=== PATIENT | female | born 1930 | race Caucasian/White ===

== ENCOUNTER 2017-04-02 11:24 | Inpatient (IN) | payer MEDICARE, OTHER ==
[2017-04-02] MEDS ORDERED: traMADol 50 MG Tab PO ONE (12:08)
--- NOTE | 2017-04-02 12:08 | EDM.PDOC ---
ED HPI GENERAL MEDICAL PROBLEM - General Chief Complaint: Back Pain or Injury Stated Complaint: [facility] Time Seen by Provider: 04/02/17 11:27 Source of Information: Reports: Patient, Family History Limitations: Reports: No Limitations - History of Present Illness INITIAL COMMENTS - FREE TEXT/NARRATIVE: The patient is an 86-year-old female brought in by EMS for severe right back and hip pain. She states she had a fall about 6 weeks ago. After that time, though she was not injured and didn't seek medical attention. About 3 weeks after the fall she started to get severe pain in the right low back and hip area while she was at work. Pain is located in the right posterior hip and low back area and sometimes radiates down her right foot. No numbness, paresthesia, or weakness in the feet. No urinary symptoms. She saw a clinic provider who did some sort of x-rays and diagnosed her with sciatica she was prescribed diclofenac tablets and topical diclofenac gel. However she's had no improvement with these medications. In fact today her pain was so bad that she was not able to get out of bed. Her daughter has been trying to help her out at home but even with her daughter's assistance she was not able to get up due to the severity of her pain. She is normally very active and healthy and previously walk without assistance. She has been trying to use a walker however she is feeling too much pain to use and use her walker today. No new falls or trauma. No fever or recent illness. No prior history of back or hip pain. Right Lower Back Pain Score (Numeric/FACES): 3 - Related Data Allergies Allergy/AdvReac Type Severity Reaction Status Date / Time eggs Allergy Cannot Uncoded 04/02/17 11:27 Remember Home Meds: Home Meds Carvedilol [Coreg] 6.25 mg PO BID #60 tablet 08/22/15 [Rx] Acetaminophen/Diphenhydramine [Tylenol Pm Ex-Strength Caplet] 1 tab PO BEDTIME 04/02/17 [History] Aspirin 81 mg PO DAILY 04/02/17 [History] Calcium Carbonate/Vitamin D3 [Calcium 500-Vit D3 200 Tablet] 1 tab PO DAILY [History] Calcium Carbonate/Vitamin D3 [Calcium Carb 500 MG] 1 tab CHEW ASDIRECTED [History] Cranberry 400 mg PO DAILY 04/02/17 [History] Denosumab [Prolia] 60 mg SUBCUT ASDIRECTED 04/02/17 [History] Ferrous Sulfate 325 mg PO DAILY 04/02/17 [History] Garlic 400 mg PO DAILY 04/02/17 [History] Gluc 2KCl/Chondr/Princess Hy/Hy Ac [Glucosamine & Chondroitin Cap] 1 cap PO DAILY [History] Multivitamin with Minerals [Multivitamins with Minerals] 1 tab PO DAILY [History] Potassium Chloride 10 meq PO DAILY 04/02/17 [History] Vit A/C/E AC/Znox/Cupric Oxide [Eye Vitamin-Minerals Tablet] 1 tab PO DAILY [History] Vitamin E 400 unit PO DAILY 04/02/17 [History] amLODIPine [Norvasc] 2.5 mg PO DAILY 04/02/17 [History] diphenhydrAMINE [Benadryl] 25 mg PO QAM 04/02/17 [History] Past Medical History HEENT History: Reports: Cataract Cardiovascular History: Reports: Hypertension Gastrointestinal History: Reports: Chronic Constipation, Chronic Diarrhea 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: Musculoskeletal History: Reports: Back Pain, Chronic - Past Surgical History HEENT Surgical History: Reports: Cataract Surgery, Tonsillectomy, Other (See Below) Social & Family History - Family History Family Medical History: Noncontributory - Tobacco Use Smoking Status *Q: Never Smoker - Recreational Drug Use Recreational Drug Use: No ED ROS GENERAL - Review of Systems Review Of Systems: See Below Constitutional: Denies: Fever HEENT: Reports: No Symptoms Respiratory: Denies: Cough Cardiovascular: Denies: Chest Pain Endocrine: Reports: No Symptoms GI/Abdominal: Denies: Abdominal Pain : Denies: Dysuria Musculoskeletal: Reports: Back Pain Skin: Reports: No Symptoms Neurological: Denies: Numbness, Paresthesia, Weakness Psychiatric: Reports: No Symptoms Hematologic/Lymphatic: Reports: No Symptoms Immunologic: Reports: No Symptoms ED EXAM,LOWER BACK PAIN/INJURY - Physical Exam Exam: See Below Exam Limited By: No Limitations General Appearance: Alert, WD/WN, No Apparent Distress Eye Exam: Bilateral Eye: Normal Inspection Ears: Normal External Exam Nose: Normal Inspection Throat/Mouth: Normal Inspection Head: Atraumatic, Normocephalic Neck: Normal Inspection, Supple, Non-Tender, Full Range of Motion Respiratory/Chest: No Respiratory Distress, Lungs Clear, Normal Breath Sounds Cardiovascular: Normal Peripheral Pulses, Regular Rate, Rhythm, No Murmur GI/Abdominal: Soft, Non-Tender, No Distention. No: Rebound Back Exam: Normal Inspection, Other (Some tenderness in the right SI joint area , more tenderness inferior to the SI joint across the right buttock. Straight leg raise produces pain in the right low back with raise of the left leg to about 25 in the right leg to about 20.). No: CVA Tenderness (L), CVA Tenderness (R), Paraspinal Tenderness, Vertebral Tenderness Extremities: Normal Inspection, Non-Tender, No Pedal Edema Neurological: Alert, Normal Mood/Affect, Normal Dorsiflexion, Normal Plantar Flexion, No Motor/Sensory Deficits, Oriented x 3 Psychiatric: Normal Affect, Normal Mood Skin Exam: Warm, Dry, Intact, Normal Color, No Rash Course - Vital Signs Last Recorded V/S: Last Vital Signs Temp 36.9 C 04/02/17 11:27 Pulse 77 04/02/17 11:27 Resp BP 168/93 H 04/02/17 13:06 Pulse Ox 97 04/02/17 11:27 - Orders/Labs/Meds Orders: Active Orders 24 hr Category Date Time Status Hip Min 2V or 3V w Pelvis Rt [CR] Stat Exams 04/02/17 12:08 Taken Medication Orders Amlodipine Besylate (Norvasc) 2.5 mg PO DAILY [facility] Aspirin (Aspirin) 81 mg PO DAILY [facility] Calcium Carbonate (Calcium Carbonate/Vitamin D 1500 Mg-200 Unit) 1 tab PO DAILY [facility] Carvedilol (Coreg) 6.25 mg PO BID [facility] Denosumab (Prolia) 60 mg SUBCUT ASDIRECTED [facility] Diphenhydramine HCl (Benadryl) 25 mg PO QAM [facility] Ferrous Sulfate (Ferrous Sulfate) 325 mg PO DAILY [facility] Multivitamins (Thera) 1 each PO DAILY [facility] Non-Formulary Medication (Cranberry [Cranberry]) 400 mg PO DAILY [facility] Meds: Medications Generic Name Dose Route Start Last Admin Trade Name Freq PRN Reason Stop Dose Admin Amlodipine Besylate 2.5 mg 04/03/17 09:00 Norvasc PO DAILY [facility] Aspirin 81 mg 04/03/17 09:00 Aspirin PO DAILY [facility] Calcium Carbonate 1 tab 04/03/17 09:00 Calcium Carbonate/Vitamin D 1500 Mg-200 Unit PO DAILY [facility] Carvedilol 6.25 mg 04/02/17 21:00 Coreg PO BID [facility] Denosumab 60 mg 04/02/17 14:30 Prolia SUBCUT ASDIRECTED [facility] Diphenhydramine HCl 25 mg 04/03/17 08:00 Benadryl PO QAM [facility] Ferrous Sulfate 325 mg 04/03/17 09:00 Ferrous Sulfate PO DAILY [facility] Multivitamins 1 each 04/03/17 09:00 Thera PO DAILY [facility] Non-Formulary Medication 400 mg 04/03/17 09:00 Cranberry [Cranberry] PO DAILY [facility] Discontinued Medications Generic Name Dose Route Start Last Admin Trade Name Freq PRN Reason Stop Dose Admin Amlodipine Besylate 5 mg 04/02/17 12:40 04/02/17 13:06 Norvasc PO 04/02/17 12:41 5 mg ONETIME ONE Administration Carvedilol 12.5 mg 04/02/17 12:40 04/02/17 13:04 Coreg PO 04/02/17 12:41 12.5 mg ONETIME ONE Administration Tramadol HCl 50 mg 04/02/17 12:08 04/02/17 12:13 Ultram PO 04/02/17 12:09 50 mg ONETIME ONE Administration - Re-Assessments/Exams Free Text/Narrative Re-Assessment/Exam: 04/02/17 12:48 X-rays of the hip and pelvis so some 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 Her history and exam are consistent with a sciatica exacerbation, I do think this is the etiology of her pain. Patient is still not able to get up out of bed after receiving tramadol. She currently lives at home alone. She has a daughter to help her but her daughter is not able to get her out of bed either. Given patient's immobility due to pain, I will request admission for pain control and physical therapy. Discussed with Dr. Blancas who agrees to admit patient. Departure - Departure Time of Disposition: 13:55 Disposition: Admitted As Inpatient 65 Clinical Impression: Sciatica Qualifiers: Laterality: right Qualified Code(s): M54.31 - Sciatica, right side Back pain Qualifiers: Back pain location: low back pain Chronicity: acute Back pain laterality: right Sciatica presence: with sciatica Sciatica laterality: sciatica of right side Qualified Code(s): M54.41 - Lumbago with sciatica, right side - Discharge Information - My Orders Last 24 Hours: My Active Orders 04/02/17 12:08 Hip Min 2V or 3V w Pelvis Rt [CR] Stat - Assessment/Plan Last 24 Hours: My Active Orders 04/02/17 12:08 Hip Min 2V or 3V w Pelvis Rt [CR] Stat
[2017-04-02] MEDS ORDERED: Carvedilol 12.5 MG Tab PO ONE (12:40)
[2017-04-02] MEDS ORDERED: amLODIPine 5 MG Tab PO ONE (12:40)
[2017-04-02] MEDS ORDERED: Denosumab 60 MG/1 ML Syringe SUBCUT SCH (14:30)
[2017-04-02] MEDS ORDERED: HYDROmorphone 0.5 MG/0.5 ML Syringe IVPUSH PRN (14:48)
--- NOTE | 2017-04-02 14:49 | PCM.HP ---
H&P History of Present Illness - General Date of Service: 04/02/17 Admit Problem/Dx: Admission Diagnosis/Problem Admission Diagnosis/Problem Back pain Source of Information: Patient, Family, Provider History Limitations: Reports: No Limitations - History of Present Illness Initial Comments - Free Text/Narative: 86 year old female remote history of a fall, 6 wks [employer]. Presents with back pain and limited mobility. The pain radiates down her right leg to her foot. There is no numbness, parathesias, or generalized weakness. She denies syncopal , presyncopal epdisode, CP or SOB. The patient was seen as an OP recently and was prescribed an NSAID, this has provided minimal relief. She presents with intractible back pain, and limited mobility. Onset of Symptoms: Reports: Gradual Symptom Onset Date: 03/16/17 Duration of Symptoms: Reports: Week(s):, Getting Worse Location: Reports: Back Quality: Reports: Sharp, Stabbing Severity: Moderate Improves with: Reports: Medication Worsens with: Reports: None Associated Symptoms: Reports: No Other Symptoms Right Lower Back Pain Score (Numeric/FACES): 3 - Related Data Allergies/Adverse Reactions: Allergies Allergy/AdvReac Type Severity Reaction Status Date / Time eggs Allergy Cannot Uncoded 04/02/17 11:27 Remember Home Medications: Home Meds Carvedilol [Coreg] 6.25 mg PO BID #60 tablet 08/22/15 [Rx] Acetaminophen/Diphenhydramine [Tylenol Pm Ex-Strength Caplet] 1 tab PO BEDTIME 04/02/17 [History] Aspirin 81 mg PO DAILY 04/02/17 [History] Calcium Carbonate/Vitamin D3 [Calcium 500-Vit D3 200 Tablet] 1 tab PO DAILY [History] Calcium Carbonate/Vitamin D3 [Calcium Carb 500 MG] 1 tab CHEW ASDIRECTED [History] Cranberry 400 mg PO DAILY 04/02/17 [History] Denosumab [Prolia] 60 mg SUBCUT ASDIRECTED 04/02/17 [History] Diclofenac Sodium [Voltaren 1% Gel] 100 gm TOP BID 04/02/17 [History] Diclofenac Sodium [Voltaren] 75 mg PO BIDMEALS 04/02/17 [History] Ferrous Sulfate 325 mg PO DAILY 04/02/17 [History] Garlic 400 mg PO DAILY 04/02/17 [History] Gluc 2KCl/Chondr/Princess Hy/Hy Ac [Glucosamine & Chondroitin Cap] 1 cap PO DAILY [History] Multivitamin with Minerals [Multivitamins with Minerals] 1 tab PO DAILY [History] Potassium Chloride 10 meq PO DAILY 04/02/17 [History] Vit A/C/E AC/Znox/Cupric Oxide [Eye Vitamin-Minerals Tablet] 1 tab PO DAILY [History] Vitamin E 400 unit PO DAILY 04/02/17 [History] amLODIPine [Norvasc] 2.5 mg PO DAILY 04/02/17 [History] diphenhydrAMINE [Benadryl] 25 mg PO QAM 04/02/17 [History] Past Medical History HEENT History: Reports: Cataract Cardiovascular History: Reports: Hypertension Gastrointestinal History: Reports: Chronic Constipation, Chronic Diarrhea 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: Musculoskeletal History: Reports: Back Pain, Chronic - Past Surgical History HEENT Surgical History: Reports: Cataract Surgery, Tonsillectomy, Other (See Below) Social & Family History - Family History Family Medical History: Noncontributory - Tobacco Use Smoking Status *Q: Never Smoker - Recreational Drug Use Recreational Drug Use: No H&P Review of Systems - Review of Systems: Review Of Systems: See Below General: Reports: Weakness HEENT: Reports: No Symptoms Pulmonary: Reports: No Symptoms Cardiovascular: Reports: No Symptoms Gastrointestinal: Reports: No Symptoms Genitourinary: Reports: No Symptoms Musculoskeletal: Reports: Back Pain Skin: Reports: No Symptoms Psychiatric: Reports: No Symptoms Neurological: Reports: No Symptoms Hematologic/Lymphatic: Reports: No Symptoms Immunologic: Reports: No Symptoms Exam - Exam Exam: See Below - Vital Signs Vital Signs: Last Vital Signs Temp 36.9 C 04/02/17 11:27 Pulse 77 04/02/17 11:27 Resp BP 168/93 H 04/02/17 13:06 Pulse Ox 97 04/02/17 11:27 Weight: 46.357 kg - Exam Quality Assessment: DVT Prophylaxis General: Alert, Oriented, Cooperative HEENT: EOMI, Nares Patent, Normal Nasal Septum, Posterior Pharynx Clear, Pupils Equal, Pupils Reactive, PERRLA Neck: Supple, Trachea Midline Lungs: Normal Respiratory Effort Cardiovascular: Regular Rate GI/Abdominal Exam: Normal Bowel Sounds, Soft, Non-Tender, No Organomegaly, No Distention (Female) Exam: Deferred Rectal (Female) Exam: Deferred Back Exam: Normal Inspection Extremities: Normal Inspection, Non-Tender, No Pedal Edema Skin: Warm Neurological: Cranial Nerves Intact Neuro Extensive - Mental Status: Alert, Oriented x3, Normal Mood/Affect, Normal Cognition, Memory Intact Neuro Extensive - Motor, Sensory, Reflexes: CN II-XII Intact Psychiatric: Alert, Normal Affect, Normal Mood - Patient Data Result Diagrams: 04/02/17 16:00 04/02/17 16:00 *Q Meaningful Use (ADM) - VTE *Q VTE Criteria *Q: - Stroke *Q Stroke Criteria *Q: - AMI *Q AMI Criteria *Q: - Problem List (1) Back pain SNOMED Code(s): 734089924 ICD Code: M54.9 - DORSALGIA, UNSPECIFIED Status: Acute Current Visit: Yes Qualifiers: Back pain location: low back pain Chronicity: acute Back pain laterality : right Sciatica presence: with sciatica Sciatica laterality: sciatica of right side Qualified Code(s): M54.41 - Lumbago with sciatica, right side (2) Sciatica SNOMED Code(s): 96704582 ICD Code: M54.30 - SCIATICA, UNSPECIFIED SIDE Status: Acute Current Visit : Yes Qualifiers: Laterality: right Qualified Code(s): M54.31 - Sciatica, right side (3) Hypertension SNOMED Code(s): 83770146 ICD Code: I10 - ESSENTIAL (PRIMARY) HYPERTENSION Status: Chronic Priority : Medium Current Visit: No Onset Date: 08/22/15 Problem Details: - Controlled - Dosing was too much - Will adjust meds Qualifiers: Hypertension type: essential hypertension Problem List Initiated/Reviewed/Updated: Yes Orders Last 24hrs: Active Orders 24 hr Category Date Time Status Patient Status [ADT] Routine ADT 04/02/17 14:40 Active Consult to Occupational Therapy [OT Evaluation and Cons 04/04/17 10:00 Ordered Treatment] [CONS] Routine Consult to Physical Therapy [PT Evaluation and Cons 04/04/17 09:00 Ordered Treatment] [CONS] Routine 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 [CONS] Routine Cons 04/04/17 09:00 Ordered Heart Healthy Diet [DIET] Diet 04/02/17 Lunch Ordered BASIC METABOLIC PANEL,BMP [CHEM] DAILY Lab 04/03/17 05:00 Ordered BASIC METABOLIC PANEL,BMP [CHEM] DAILY Lab 04/04/17 05:00 Ordered BASIC METABOLIC PANEL,BMP [CHEM] DAILY Lab 04/05/17 05:00 Ordered BASIC METABOLIC PANEL,BMP [CHEM] DAILY Lab 04/06/17 05:00 Ordered CBC WITH AUTO DIFF [HEME] DAILY Lab 04/03/17 05:00 Ordered CBC WITH AUTO DIFF [HEME] DAILY Lab 04/04/17 05:00 Ordered CBC WITH AUTO DIFF [HEME] DAILY Lab 04/05/17 05:00 Ordered CBC WITH AUTO DIFF [HEME] DAILY Lab 04/06/17 05:00 Ordered CBC WITH AUTO DIFF [HEME] Routine Lab 04/02/17 16:00 Ordered CMP [COMPREHENSIVE METABOLIC PN,CMP] [CHEM] Routine Lab 04/02/17 16:00 Ordered CRP [C-REACTIVE PROTEIN] [CHEM] DAILY Lab 04/03/17 05:00 Ordered CRP [C-REACTIVE PROTEIN] [CHEM] DAILY Lab 04/04/17 05:00 Ordered CRP [C-REACTIVE PROTEIN] [CHEM] DAILY Lab 04/05/17 05:00 Ordered CRP [C-REACTIVE PROTEIN] [CHEM] DAILY Lab 04/06/17 05:00 Ordered INFLUENZA A+B AG SCREEN [RM] Routine Lab 04/02/17 14:31 Uncollected LIPID PANEL [CHEM] Routine Lab 04/03/17 05:00 Ordered MAGNESIUM [CHEM] DAILY Lab 04/03/17 05:00 Ordered MAGNESIUM [CHEM] DAILY Lab 04/04/17 05:00 Ordered MAGNESIUM [CHEM] DAILY Lab 04/05/17 05:00 Ordered MAGNESIUM [CHEM] DAILY Lab 04/06/17 05:00 Ordered SEDIMENTATION RATE AUTO [HEME] Routine Lab 04/02/17 16:00 Ordered Aspirin Med 04/03/17 09:00 Ordered 81 mg PO DAILY Calcium Carbonate/Vitamin D3 Med 04/03/17 09:00 Ordered 1 tab PO DAILY Carvedilol [Coreg] Med 04/02/17 21:00 Ordered 6.25 mg PO BID Cranberry [Cranberry] Med 04/03/17 09:00 Ordered 400 mg PO DAILY Denosumab [Prolia] Med 04/02/17 14:30 Ordered 60 mg SUBCUT ASDIRECTED Ferrous Sulfate Med 04/03/17 09:00 Ordered 325 mg PO DAILY HYDROmorphone [Dilaudid] Med 04/02/17 14:48 Ordered 0.5 mg IVPUSH Q4H PRN Multivitamin with Minerals [Multivitamins with Minerals Med 04/03/17 09:00 Ordered ] 1 tab PO DAILY amLODIPine [Norvasc] Med 04/03/17 09:00 Ordered 2.5 mg PO DAILY diphenhydrAMINE Med 04/03/17 08:00 Ordered 25 mg PO QAM fentaNYL [Duragesic] Med 04/02/17 15:00 Ordered 12 mcg TRDERM Q72H traMADol [Ultram] Med 04/02/17 14:48 Ordered 50 mg PO Q8H PRN Code Status [Resuscitation Status] Routine Resus Stat 04/02/17 14:36 Ordered Medication Orders Amlodipine Besylate (Norvasc) 2.5 mg PO DAILY [facility] Aspirin (Aspirin) 81 mg PO DAILY [facility] Calcium Carbonate (Calcium Carbonate/Vitamin D 1500 Mg-200 Unit) 1 tab PO DAILY [facility] Carvedilol (Coreg) 6.25 mg PO BID [facility] Denosumab (Prolia) 60 mg SUBCUT ASDIRECTED [facility] Diphenhydramine HCl (Benadryl) 25 mg PO QAM [facility] Fentanyl (Duragesic) 12 mcg TRDERM Q72H [facility] Ferrous Sulfate (Ferrous Sulfate) 325 mg PO DAILY [facility] Hydromorphone HCl (Dilaudid) 0.5 mg IVPUSH Q4H PRN PRN Reason: Pain Multivitamins (Thera) 1 each PO DAILY [facility] Non-Formulary Medication (Cranberry [Cranberry]) 400 mg PO DAILY [facility] Tramadol HCl (Ultram) 50 mg PO Q8H PRN PRN Reason: Pain (moderate 4-6) Assessment/Plan Comment:: Impression: Back pain, query sciatic; no recent trauma Chronic HTN Plan: Pain mgt Home meds Daily Labs Correct electrolytes PT/OT/SW consults
[2017-04-02] MEDS: fentaNYL 12 MCG/HR Transdermal Patch TRDERM SCH (15:44)
[2017-04-02] MEDS: traMADol 50 MG Tab PO PRN (18:48)
[2017-04-02] MEDS ORDERED: Potassium Chloride 10% 20 MEQ/15 ML Soln 15 ML UD Cup PO ONE (19:00)
[2017-04-02] MEDS: hydrALAZINE 20 MG/ML SDV IVPUSH PRN (19:25)
[2017-04-02] MEDS: Carvedilol 6.25 MG Tab PO SCH (22:08)
[2017-04-03] MEDS: traMADol 50 MG Tab PO PRN ×3 (04:47→21:30)
[2017-04-03] MEDS: diphenhydrAMINE 25 MG Cap PO SCH (08:17)
[2017-04-03] MEDS: Aspirin 81 MG Tab.Chew PO SCH (08:18)
[2017-04-03] MEDS: amLODIPine 2.5 MG Tab PO SCH (08:18)
[2017-04-03] MEDS: Multivitamins,Therapeutic Tab PO SCH (08:18)
[2017-04-03] MEDS: Ferrous Sulfate 325 MG Tab PO SCH (08:18)
[2017-04-03] MEDS: Calcium Carbonate/Vitamin D3 1500 MG-200 Units Tab PO SCH (08:18)
[2017-04-03] MEDS: Carvedilol 6.25 MG Tab PO SCH ×2 (08:18→21:30)
[2017-04-03] MEDS: Enoxaparin 40 MG/0.4 ML Syringe SUBCUT SCH (08:19)
[2017-04-03] MEDS ORDERED: Non-Formulary Medication 1 Each (Cranberry [Cranberry] 400 MG) PO SCH (09:00)
--- NOTE | 2017-04-03 14:23 | PCM.PN ---
- General Info Date of Service: 04/03/17 Subjective Update: Feels better with fentanyl patch and ultram, has not required dilaudid IV since yesterday in the evening. Functional Status: Reports: Tolerating Diet, Ambulating, Urinating - Review of Systems General: Reports: No Symptoms HEENT: Reports: No Symptoms Pulmonary: Reports: No Symptoms Cardiovascular: Reports: No Symptoms Gastrointestinal: Reports: No Symptoms Genitourinary: Reports: No Symptoms Musculoskeletal: Reports: No Symptoms Skin: Reports: No Symptoms Neurological: Reports: No Symptoms Psychiatric: Reports: No Symptoms - Patient Data Vitals - Most Recent: Last Vital Signs Temp 37.4 C 04/03/17 12:09 Pulse 72 04/03/17 12:09 Resp 18 04/03/17 12:09 BP 140/84 04/03/17 12:09 Pulse Ox 96 04/03/17 12:09 Weight - Most Recent: 46.357 kg I&O - Last 24 Hours: Intake & Output 04/02/17 04/03/17 04/03/17 22:59 06:59 14:59 Intake Total 1400 1000 180 Output Total 900 Balance 1400 100 180 Lab Results Last 24 Hours: Laboratory Results - last 24 hr 04/02/17 04/02/17 04/02/17 Range/Units 16:00 16:00 16:00 WBC 9.07 (3.98-10.04) K/mm3 RBC 3.97 L (3.98-5.22) M/mm3 Hgb 13.2 (11.2-15.7) gm/L Hct 39.9 (34.1-44.9) % MCV 100.5 H (79.4-94.8) fl MCH 33.2 H (25.6-32.2) pg MCHC 33.1 (32.2-35.5) g/dl RDW Std Deviation 46.3 (36.4-46.3) fL Plt Count 261 (182-369) K/mm3 MPV 9.0 L (9.4-12.3) fl Neut % (Auto) 63.1 (34.0-71.1) % Lymph % (Auto) 21.7 (19.3-51.7) % [place] % (Auto) 11.9 (4.7-12.5) % Eos % (Auto) 2.8 (0.7-5.8) Baso % (Auto) 0.3 (0.1-1.2) % Neut # (Auto) 5.72 (1.56-6.13) K/mm3 Lymph # (Auto) 1.97 (1.18-3.74) K/mm3 [place] # (Auto) 1.08 H (0.24-0.36) K/mm3 Eos # (Auto) 0.25 (0.04-0.36) K/mm3 Baso # (Auto) 0.03 (0.01-0.08) K/mm3 ESR 19 (0-20) mm/hr Sodium 143 (136-145) mEq/L Potassium 3.2 L (3.5-5.1) mEq/L Chloride 107 (98-107) mEq/L Carbon Dioxide 30 (21-32) mEq/L Anion Gap 9.2 (5-15) BUN 18 (7-18) mg/dL Creatinine 0.8 (0.55-1.02) mg/dL Est Cr Clr Drug Dosing 35.59 mL/min Estimated GFR (MDRD) > 60 (>60) mL/min BUN/Creatinine Ratio 22.5 H (14-18) Glucose 138 H (83-115) mg/dL Calcium 8.5 (8.5-10.1) mg/dL Magnesium (1.8-2.4) mg/dl Total Bilirubin 0.6 (0.2-1.0) mg/dL AST 24 (15-37) U/L ALT 22 (14-59) U/L Alkaline Phosphatase 127 H (46-116) U/L C-Reactive Protein (<1.0) mg/dL Total Protein 6.5 (6.4-8.2) g/dl Albumin 3.1 L (3.4-5.0) g/dl Globulin 3.4 gm/dL Albumin/Globulin Ratio 0.9 L (1-2) Triglycerides (<150) mg/dL Cholesterol (<200) mg/dL LDL Cholesterol Direct (<100) mg/dL HDL Cholesterol (40-59) mg/dL 04/03/17 04/03/17 Range/Units 05:45 05:45 WBC 8.41 (3.98-10.04) K/mm3 RBC 3.99 (3.98-5.22) M/mm3 Hgb 13.3 (11.2-15.7) gm/L Hct 40.3 (34.1-44.9) % MCV 101.0 H (79.4-94.8) fl MCH 33.3 H (25.6-32.2) pg MCHC 33.0 (32.2-35.5) g/dl RDW Std Deviation 47.7 H (36.4-46.3) fL Plt Count 262 (182-369) K/mm3 MPV 9.1 L (9.4-12.3) fl Neut % (Auto) 66.9 (34.0-71.1) % Lymph % (Auto) 19.1 L (19.3-51.7) % [place] % (Auto) 11.5 (4.7-12.5) % Eos % (Auto) 2.1 (0.7-5.8) Baso % (Auto) 0.2 (0.1-1.2) % Neut # (Auto) 5.61 (1.56-6.13) K/mm3 Lymph # (Auto) 1.61 (1.18-3.74) K/mm3 [place] # (Auto) 0.97 H (0.24-0.36) K/mm3 Eos # (Auto) 0.18 (0.04-0.36) K/mm3 Baso # (Auto) 0.02 (0.01-0.08) K/mm3 ESR (0-20) mm/hr Sodium 144 (136-145) mEq/L Potassium 3.6 (3.5-5.1) mEq/L Chloride 109 H (98-107) mEq/L Carbon Dioxide 26 (21-32) mEq/L Anion Gap 12.6 (5-15) BUN 14 (7-18) mg/dL Creatinine 0.6 (0.55-1.02) mg/dL Est Cr Clr Drug Dosing 47.45 mL/min Estimated GFR (MDRD) > 60 (>60) mL/min BUN/Creatinine Ratio 23.3 H (14-18) Glucose 129 H (83-115) mg/dL Calcium 8.5 (8.5-10.1) mg/dL Magnesium 2.3 (1.8-2.4) mg/dl Total Bilirubin (0.2-1.0) mg/dL AST (15-37) U/L ALT (14-59) U/L Alkaline Phosphatase (46-116) U/L C-Reactive Protein < 0.2 (<1.0) mg/dL Total Protein (6.4-8.2) g/dl Albumin (3.4-5.0) g/dl Globulin gm/dL Albumin/Globulin Ratio (1-2) Triglycerides 81 (<150) mg/dL Cholesterol 185 (<200) mg/dL LDL Cholesterol Direct 113 H* (<100) mg/dL HDL Cholesterol 54.0 (40-59) mg/dL [place] Results Last 24 Hours: Microbiology 04/02/17 15:28 Influenza Type A Antigen Screen - Final Nasal, Right Positive Influenza A Ag Influenza Type B Antigen Screen - Final NEGATIVE INFLUENZA B VIRUS AG Med Orders - Current: Current Medications Amlodipine Besylate (Norvasc) 2.5 mg PO DAILY [facility] Last Admin: 04/03/17 08:18 Dose: 2.5 mg Aspirin (Aspirin) 81 mg PO DAILY [facility] Last Admin: 04/03/17 08:18 Dose: 81 mg Calcium Carbonate (Calcium Carbonate/Vitamin D 1500 Mg-200 Unit) 1 tab PO DAILY [facility] Last Admin: 04/03/17 08:18 Dose: 1 tab Carvedilol (Coreg) 6.25 mg PO BID [facility] Last Admin: 04/03/17 08:18 Dose: 6.25 mg Diphenhydramine HCl (Benadryl) 25 mg PO QAM [facility] Last Admin: 04/03/17 08:17 Dose: Not Given Enoxaparin Sodium (Lovenox) 40 mg SUBCUT DAILY [facility] Last Admin: 04/03/17 08:19 Dose: 40 mg Fentanyl (Duragesic) 12 mcg TRDERM Q72H [facility] Last Admin: 04/02/17 15:44 Dose: 12 mcg Ferrous Sulfate (Ferrous Sulfate) 325 mg PO DAILY [facility] Last Admin: 04/03/17 08:18 Dose: 325 mg Hydralazine HCl (Apresoline) 20 mg IVPUSH Q8H PRN PRN Reason: Hypertension Last Admin: 04/02/17 19:25 Dose: 20 mg Hydromorphone HCl (Dilaudid) 0.5 mg IVPUSH Q4H PRN PRN Reason: Pain Miscellaneous Information (Remove Patch) 1 ea TRDERM Q72H [facility] Multivitamins (Thera) 1 each PO DAILY [facility] Last Admin: 04/03/17 08:18 Dose: 1 each Tramadol HCl (Ultram) 50 mg PO Q8H PRN PRN Reason: Pain (moderate 4-6) Last Admin: 04/03/17 12:53 Dose: 50 mg Discontinued Medications Amlodipine Besylate (Norvasc) 5 mg PO ONETIME ONE Stop: 04/02/17 12:41 Last Admin: 04/02/17 13:06 Dose: 5 mg Carvedilol (Coreg) 12.5 mg PO ONETIME ONE Stop: 04/02/17 12:41 Last Admin: 04/02/17 13:04 Dose: 12.5 mg Denosumab (Prolia) 60 mg SUBCUT ASDIRECTED [facility] Non-Formulary Medication (Cranberry [Cranberry]) 400 mg PO DAILY [facility] Potassium Chloride (Potassium Chloride Solution) 40 meq PO ONETIME ONE Stop: 04/02/17 19:01 Last Admin: 04/02/17 18:32 Dose: 40 meq Tramadol HCl (Ultram) 50 mg PO ONETIME ONE Stop: 04/02/17 12:09 Last Admin: 04/02/17 12:13 Dose: 50 mg - Exam Quality Assessment: DVT Prophylaxis General: Alert, Oriented, Cooperative, No Acute Distress HEENT: Pupils Equal, Pupils Reactive, EOMI Neck: Supple, Trachea Midline, No JVD Lungs: Normal Respiratory Effort Cardiovascular: Regular Rate, Regular Rhythm GI/Abdominal Exam: Normal Bowel Sounds, Soft, Non-Tender, No Organomegaly, No Distention (Female) Exam: Deferred Back Exam: Normal Inspection Extremities: Normal Inspection Skin: Warm Neurological: No New Focal Deficit Psy/Mental Status: Alert, Normal Affect, Normal Mood - Problem List & Annotations (1) Back pain SNOMED Code(s): 641958619 Code(s): M54.9 - DORSALGIA, UNSPECIFIED Status: Acute Current Visit: Yes Qualifiers: Back pain location: low back pain Chronicity: acute Back pain laterality : right Sciatica presence: with sciatica Sciatica laterality: sciatica of right side Qualified Code(s): M54.41 - Lumbago with sciatica, right side (2) Sciatica SNOMED Code(s): 58245592 Code(s): M54.30 - SCIATICA, UNSPECIFIED SIDE Status: Acute Current Visit : Yes Qualifiers: Laterality: right Qualified Code(s): M54.31 - Sciatica, right side (3) Hypertension SNOMED Code(s): 93989227 Code(s): I10 - ESSENTIAL (PRIMARY) HYPERTENSION Status: Chronic Priority : Medium Current Visit: No Onset Date: 08/22/15 Qualifiers: Hypertension type: essential hypertension Annotation/Comment:: - Controlled - Dosing was too much - Will adjust meds - Problem List Review Problem List Initiated/Reviewed/Updated: Yes - My Orders Last 24 Hours: My Active Orders 04/02/17 14:48 HYDROmorphone [Dilaudid] 0.5 mg IVPUSH Q4H PRN traMADol [Ultram] 50 mg PO Q8H PRN 04/02/17 15:00 fentaNYL [Duragesic] 12 mcg TRDERM Q72H 04/02/17 15:56 Up With Assistance [RC] ASDIRECTED 04/02/17 18:56 hydrALAZINE [Apresoline] 20 mg IVPUSH Q8H PRN 04/03/17 09:00 Enoxaparin [Lovenox] 40 mg SUBCUT DAILY 04/04/17 09:00 Consult to Physical Therapy [PT Evaluation and Treatment] [CONS] Routine 04/04/17 10:00 Consult to Occupational Therapy [OT Evaluation and Treatment] [CONS] Routine - Plan Plan:: Impression: Back pain, query sciatic; no recent trauma Responding to transdermal fentanyl and ultram Chronic HTN Plan: Pain mgt Home meds Daily Labs Correct electrolytes PT/OT/SW consults DC 24-48 hours
[2017-04-03] MEDS: hydrALAZINE 20 MG/ML SDV IVPUSH PRN (23:24)
[2017-04-04] MEDS: traMADol 50 MG Tab PO PRN ×2 (06:04→16:21)
[2017-04-04] MEDS: diphenhydrAMINE 25 MG Cap PO SCH (07:28)
[2017-04-04] MEDS: Carvedilol 6.25 MG Tab PO SCH ×2 (08:10→21:02)
[2017-04-04] MEDS: amLODIPine 2.5 MG Tab PO SCH (08:10)
[2017-04-04] MEDS: Ferrous Sulfate 325 MG Tab PO SCH (08:11)
[2017-04-04] MEDS: Aspirin 81 MG Tab.Chew PO SCH (08:11)
[2017-04-04] MEDS: Multivitamins,Therapeutic Tab PO SCH (08:11)
[2017-04-04] MEDS: Calcium Carbonate/Vitamin D3 1500 MG-200 Units Tab PO SCH (08:11)
[2017-04-04] MEDS: Enoxaparin 40 MG/0.4 ML Syringe SUBCUT SCH (08:12)
--- NOTE | 2017-04-04 08:34 | CR ---
Pelvis and right hip: AP view of the pelvis was obtained as well as AP and frog-leg lateral views of the right hip. Comparison: No prior pelvis or hip study is available. Calcifications are seen within the pelvis believed to be incidental. Minimal degenerative change partially visualized within the lower lumbar spine. Moderate joint space narrowing noted within the left hip. Joint space within the right hip is preserved. Mild osteophytes are noted off of both hips. Bony structures are osteopenic. Impression: 1. Osteopenia, degenerative change and other incidental findings as described above. Diagnostic code #2
[2017-04-04] MEDS ORDERED: [UNRECOGNIZED DRUG - OTHER] CHEW SCH (10:30)
[2017-04-04] MEDS ORDERED: CALCIUM CARBONATE CHEW SCH (10:30)
[2017-04-04] MEDS ORDERED: VITAMIN D3 CHEW SCH (10:30)
[2017-04-04] MEDS ORDERED: Potassium Chloride 20 MEQ Tab.ER PO ONE (10:30)
[2017-04-04] MEDS: Potassium Chloride 10 MEQ Tab.ER PO SCH (10:31)
[2017-04-04] MEDS: Famotidine 20 MG Tab PO SCH ×2 (10:31→21:02)
[2017-04-04] MEDS: Lidocaine 5% 700 MG Patch TOP SCH (10:31)
[2017-04-04] MEDS: Celecoxib 100 MG Cap PO SCH ×2 (10:31→21:02)
--- NOTE | 2017-04-04 10:31 | PCM.PN ---
- General Info Date of Service: 04/04/17 Admission Dx/Problem (Free Text): Admission Diagnosis/Problem Admission Diagnosis/Problem Back pain Karen is a pleasant 86yo female here with acute on chronic back pain. She has had worsening pain over the last few weeks, did have a fall at home. Xray of right hip and pelvis were negative. She has been started on fentanyl patch with some improvements. She is working with PT/OT. Appetite is minimal but she is eating. Functional Status: Reports: Pain Controlled (improved), Tolerating Diet, Ambulating (with assist), Urinating - Review of Systems General: Reports: Weakness HEENT: Reports: No Symptoms Pulmonary: Reports: No Symptoms. Denies: Shortness of Breath, Cough Cardiovascular: Reports: No Symptoms. Denies: Chest Pain Gastrointestinal: Reports: No Symptoms. Denies: Abdominal Pain, Nausea ( resolved) Genitourinary: Reports: No Symptoms Musculoskeletal: Reports: Back Pain, Leg Pain (rt sciatica) Skin: Reports: No Symptoms Neurological: Reports: No Symptoms Psychiatric: Reports: No Symptoms - Patient Data Vitals - Most Recent: Last Vital Signs Temp 99.3 F 04/04/17 07:26 Pulse 85 04/04/17 08:10 Resp 18 04/04/17 07:26 BP 139/88 04/04/17 08:10 Pulse Ox 93 L 04/04/17 07:26 Weight - Most Recent: 100 lb 3.2 oz I&O - Last 24 Hours: Intake & Output 04/03/17 04/04/17 04/04/17 22:59 06:59 14:59 Intake Total 620 600 Output Total 600 150 Balance 20 450 Lab Results Last 24 Hours: Laboratory Results - last 24 hr 04/04/17 04/04/17 Range/Units 06:22 06:22 WBC 9.64 (3.98-10.04) K/mm3 RBC 4.08 (3.98-5.22) M/mm3 Hgb 13.6 (11.2-15.7) gm/L Hct 41.2 (34.1-44.9) % MCV 101.0 H (79.4-94.8) fl MCH 33.3 H (25.6-32.2) pg MCHC 33.0 (32.2-35.5) g/dl RDW Std Deviation 48.2 H (36.4-46.3) fL Plt Count 268 (182-369) K/mm3 MPV 9.2 L (9.4-12.3) fl Neut % (Auto) 62.4 (34.0-71.1) % Lymph % (Auto) 24.9 (19.3-51.7) % [place] % (Auto) 11.4 (4.7-12.5) % Eos % (Auto) 0.9 (0.7-5.8) Baso % (Auto) 0.2 (0.1-1.2) % Neut # (Auto) 6.01 (1.56-6.13) K/mm3 Lymph # (Auto) 2.40 (1.18-3.74) K/mm3 [place] # (Auto) 1.10 H (0.24-0.36) K/mm3 Eos # (Auto) 0.09 (0.04-0.36) K/mm3 Baso # (Auto) 0.02 (0.01-0.08) K/mm3 Sodium 141 (136-145) mEq/L Potassium 3.4 L (3.5-5.1) mEq/L Chloride 106 (98-107) mEq/L Carbon Dioxide 24 (21-32) mEq/L Anion Gap 14.4 (5-15) BUN 21 H (7-18) mg/dL Creatinine 0.7 (0.55-1.02) mg/dL Est Cr Clr Drug Dosing 40.62 mL/min Estimated GFR (MDRD) > 60 (>60) mL/min BUN/Creatinine Ratio 30.0 H (14-18) Glucose 121 H (83-115) mg/dL Calcium 9.1 (8.5-10.1) mg/dL Magnesium 2.3 (1.8-2.4) mg/dl C-Reactive Protein < 0.2 (<1.0) mg/dL Med Orders - Current: Current Medications Amlodipine Besylate (Norvasc) 2.5 mg PO DAILY [facility] Last Admin: 04/04/17 08:10 Dose: 2.5 mg Aspirin (Aspirin) 81 mg PO DAILY [facility] Last Admin: 04/04/17 08:11 Dose: 81 mg Calcium Carbonate (Calcium Carbonate/Vitamin D 1500 Mg-200 Unit) 1 tab PO DAILY [facility] Last Admin: 04/04/17 08:11 Dose: 1 tab Carvedilol (Coreg) 6.25 mg PO BID [facility] Last Admin: 04/04/17 08:10 Dose: 6.25 mg Celecoxib (Celebrex) 100 mg PO BID [facility] Diphenhydramine HCl (Benadryl) 25 mg PO QAM [facility] Last Admin: 04/04/17 07:28 Dose: Not Given Enoxaparin Sodium (Lovenox) 40 mg SUBCUT DAILY [facility] Last Admin: 04/04/17 08:12 Dose: 40 mg Famotidine (Pepcid) 20 mg PO BID [facility] Fentanyl (Duragesic) 12 mcg TRDERM Q72H [facility] Last Admin: 04/02/17 15:44 Dose: 12 mcg Ferrous Sulfate (Ferrous Sulfate) 325 mg PO DAILY [facility] Last Admin: 04/04/17 08:11 Dose: 325 mg Hydralazine HCl (Apresoline) 20 mg IVPUSH Q8H PRN PRN Reason: Hypertension Last Admin: 04/03/17 23:24 Dose: 20 mg Hydromorphone HCl (Dilaudid) 0.5 mg IVPUSH Q4H PRN PRN Reason: Pain Lidocaine (Lidoderm 5%) 700 mg TOP Q24H [facility] Miscellaneous Information (Remove Patch) 1 ea TRDERM Q72H [facility] Miscellaneous Information (Remove Patch) 0 ea TRDERM Q24H [facility] Multivitamins (Thera) 1 each PO DAILY [facility] Last Admin: 04/04/17 08:11 Dose: 1 each Potassium Chloride (Klor-Con M20) 20 meq PO ONETIME ONE Stop: 04/04/17 10:31 Potassium Chloride (Klor-Con 10) 10 meq PO DAILY [facility] Tramadol HCl (Ultram) 50 mg PO Q8H PRN PRN Reason: Pain (moderate 4-6) Last Admin: 04/04/17 06:04 Dose: 50 mg Discontinued Medications Amlodipine Besylate (Norvasc) 5 mg PO ONETIME ONE Stop: 04/02/17 12:41 Last Admin: 04/02/17 13:06 Dose: 5 mg Carvedilol (Coreg) 12.5 mg PO ONETIME ONE Stop: 04/02/17 12:41 Last Admin: 04/02/17 13:04 Dose: 12.5 mg Denosumab (Prolia) 60 mg SUBCUT ASDIRECTED [facility] Non-Formulary Medication (Cranberry [Cranberry]) 400 mg PO DAILY [facility] Non-Formulary Medication (Calcium Carbonate/Vitamin D3 [Calcium Carb 500 Mg]) 1 tab CHEW ASDIRECTED [facility] Potassium Chloride (Potassium Chloride Solution) 40 meq PO ONETIME ONE Stop: 04/02/17 19:01 Last Admin: 04/02/17 18:32 Dose: 40 meq Tramadol HCl (Ultram) 50 mg PO ONETIME ONE Stop: 04/02/17 12:09 Last Admin: 04/02/17 12:13 Dose: 50 mg - Exam Quality Assessment: DVT Prophylaxis General: Alert, Oriented, Cooperative, No Acute Distress HEENT: Pupils Equal, EOMI, Mucous Membr. Moist/[place] Neck: Supple Lungs: Clear to Auscultation, Normal Respiratory Effort Cardiovascular: Regular Rate, Regular Rhythm GI/Abdominal Exam: Normal Bowel Sounds, Soft, Non-Tender (Female) Exam: Deferred Extremities: No Pedal Edema, Normal Capillary Refill Peripheral Pulses: 2+: Dorsalis Pedis (L) Neurological: No New Focal Deficit, Normal Speech, Normal Tone, Strength Equal Bilateral, Sensation Intact Psy/Mental Status: Alert, Normal Affect, Normal Mood - Problem List & Annotations (1) Back pain SNOMED Code(s): 023939487 Code(s): M54.9 - DORSALGIA, UNSPECIFIED Status: Acute Priority: High Current Visit: Yes Qualifiers: Back pain location: low back pain Chronicity: acute Back pain laterality : right Sciatica presence: with sciatica Sciatica laterality: sciatica of right side Qualified Code(s): M54.41 - Lumbago with sciatica, right side (2) Sciatica SNOMED Code(s): 40569583 Code(s): M54.30 - SCIATICA, UNSPECIFIED SIDE Status: Acute Priority: High Current Visit: Yes Qualifiers: Laterality: right Qualified Code(s): M54.31 - Sciatica, right side (3) Hypokalemia SNOMED Code(s): 20519141 Code(s): E87.6 - HYPOKALEMIA Status: Acute Priority: High Current Visit : Yes - Problem List Review Problem List Initiated/Reviewed/Updated: Yes - My Orders Last 24 Hours: My Active Orders 04/04/17 10:00 Lidocaine 5% [Lidoderm 5%] 700 mg TOP Q24H 04/04/17 10:19 Lumbar Spine wo Cont [CT] Routine 04/04/17 10:30 Celecoxib [CeleBREX] 100 mg PO BID Famotidine [Pepcid] 20 mg PO BID Potassium Chloride [Klor-Con 10] 10 meq PO DAILY Potassium Chloride [Klor-Con M20] 20 meq PO ONETIME ONE 04/04/17 22:00 Remove Patch 0 ea TRDERM Q24H - Plan Plan:: Impression: Back pain, query sciatic; no recent trauma but did fall 6 wks ago at home -Responding to transdermal fentanyl and ultram Hypokalemia- replaced and cont to monitor -Follow mag levels also Chronic HTN--stable Plan: Pain mgt; add celebrex and lidoderm patch -Will obtain CT of lumber spine today Home meds Daily Labs Correct electrolytes PT/OT SW/CM consults- ? SNF for rehab stay pending progress Patient is DNR/DNI Caitlin Plata, [employer] is PCP with [facility] in [place]
--- NOTE | 2017-04-04 12:48 | CT ---
CT lumbar spine Technique: Multiple axial sections were obtained from above the T11-T12 disc through the L5-S1 disc. Reconstructed coronal and sagittal images were obtained of the lumbar spine. Comparison: No prior lumbar spine imaging. Findings: T11-T12: Posterior disc is preserved. Minimal endplate osteophytes are noted. No central canal stenosis or neural foraminal stenosis is seen. T12-L1: Posterior disc is preserved. Minimal endplate osteophytes are seen. Mild degenerative apophyseal change is noted. No central canal stenosis or neural foraminal stenosis is seen. L1-L2: Mild circumferential disc bulge is seen. Posterior disc maintains a concave margin. Moderate degenerative apophyseal change is noted. No central canal stenosis is seen. Neural foramina are patent. L2-L3: Circumferential disc bulge is seen. Posterior disc maintains a planar margin. Moderate degenerative apophyseal change is noted. No central canal stenosis or neural foraminal stenosis is seen. L3-L4: Circumferential disc bulge is seen. Moderate to severe degenerative apophyseal change is noted. Thickening of the ligamentum flavum flavum is seen. Findings cause moderate central canal stenosis. Neural foramina are patent without definite compromise of the exiting nerve roots. L4-5: Circumferential disc bulge is seen. Severe degenerative apophyseal change is noted with thickening of the ligamentum flavum. Findings cause mild central canal stenosis. L5-S1: Fairly severe degenerative apophyseal change is noted. Posterior disc is preserved. No central canal stenosis or neural foraminal stenosis is seen. No fracture is identified. No abnormal subluxation is seen. Impression: 1. Degenerative change as noted above. Most prominent findings are moderate central canal stenosis at L3-L4 and L4-L5. Diagnostic code #3
[2017-04-05] MEDS: traMADol 50 MG Tab PO PRN ×3 (03:51→15:08)
[2017-04-05] MEDS: Potassium Chloride 10 MEQ Tab.ER PO SCH (08:40)
[2017-04-05] MEDS: Multivitamins,Therapeutic Tab PO SCH (08:41)
[2017-04-05] MEDS: amLODIPine 2.5 MG Tab PO SCH (08:41)
[2017-04-05] MEDS: Calcium Carbonate/Vitamin D3 1500 MG-200 Units Tab PO SCH (08:41)
[2017-04-05] MEDS: Aspirin 81 MG Tab.Chew PO SCH (08:41)
[2017-04-05] MEDS: Ferrous Sulfate 325 MG Tab PO SCH (08:41)
[2017-04-05] MEDS: Celecoxib 100 MG Cap PO SCH (08:41)
[2017-04-05] MEDS: Famotidine 20 MG Tab PO SCH (08:41)
[2017-04-05] MEDS: Enoxaparin 40 MG/0.4 ML Syringe SUBCUT SCH (08:42)
[2017-04-05] MEDS: Carvedilol 6.25 MG Tab PO SCH (08:42)
[2017-04-05] MEDS ORDERED: Diclofenac Sodium 1% Gel 100 GM Tube TOP PRN (10:28)
--- NOTE | 2017-04-05 10:38 | PCM.DCSUM1 ---
<Kellie Blancas - Last Filed: 04/05/17 19:04> Discharge Summary - Hospital Course Free Text/Narrative:: Minimal pain at the time of discharge, was easily able to ambulate with the walker. However she would feign severe pain in the presence of her daughter. - Discharge Data Discharge Disposition: Home, Self-Care 01 Condition: Good - Discharge Diagnosis/Problem(s) (1) Back pain SNOMED Code(s): 254311258 ICD Code: M54.9 - DORSALGIA, UNSPECIFIED Status: Acute Priority: High QualifierTitle: Back pain location: low back pain Chronicity: acute Back pain laterality: right Sciatica presence: with sciatica Sciatica laterality: sciatica of right side Qualified Code(s): M54.41 - Lumbago with sciatica, right side (2) Sciatica SNOMED Code(s): 42736782 ICD Code: M54.30 - SCIATICA, UNSPECIFIED SIDE Status: Acute Priority: High QualifierTitle: Laterality: right Qualified Code(s): M54.31 - Sciatica, right side (3) Hypertension SNOMED Code(s): 04399296 ICD Code: I10 - ESSENTIAL (PRIMARY) HYPERTENSION Status: Chronic Priority : Medium Onset Date: 08/22/15 Problem Details: - Controlled - Dosing was too much - Will adjust meds QualifierTitle: Hypertension type: essential hypertension - Patient Summary/Data Consults: Consultations 04/04/17 09:00 Consult to Physical Therapy [PT Evaluation and Treatment] [CONS] Routine 04/04/17 10:00 Consult to Occupational Therapy [OT Evaluation and Treatment] [CONS] Routine - Discharge Plan Prescriptions/Med Rec: Celecoxib [CeleBREX] 100 mg PO BID #60 cap Famotidine [Pepcid] 20 mg PO BID #60 tablet fentaNYL [Duragesic] 12 mcg TRDERM Q72H #1 box traMADol [Ultram] 50 mg PO Q4H PRN #30 tablet PRN Reason: Pain Home Medications: Home Meds Carvedilol [Coreg] 6.25 mg PO BID #60 tablet 08/22/15 [Rx] Aspirin 81 mg PO DAILY 04/02/17 [History] Calcium Carbonate/Vitamin D3 [Calcium 500-Vit D3 200 Tablet] 1 tab PO DAILY [History] Cranberry 400 mg PO DAILY 04/02/17 [History] Denosumab [Prolia] 60 mg SUBCUT ASDIRECTED 04/02/17 [History] Ferrous Sulfate 325 mg PO DAILY 04/02/17 [History] Garlic 400 mg PO DAILY 04/02/17 [History] Gluc 2KCl/Chondr/Princess Hy/Hy Ac [Glucosamine & Chondroitin Cap] 1 cap PO DAILY [History] Multivitamin with Minerals [Multivitamins with Minerals] 1 tab PO DAILY [History] Potassium Chloride 10 meq PO DAILY 04/02/17 [History] Vit A/C/E AC/Znox/Cupric Oxide [Eye Vitamin-Minerals Tablet] 1 tab PO DAILY [History] amLODIPine [Norvasc] 2.5 mg PO DAILY 04/02/17 [History] diphenhydrAMINE [Benadryl] 25 mg PO QAM 04/02/17 [History] Celecoxib [CeleBREX] 100 mg PO BID #60 cap 04/05/17 [Rx] Diclofenac Sodium [Voltaren 1% Gel] 1 applic TOP ASDIRECTED PRN 04/05/17 [ History] Famotidine [Pepcid] 20 mg PO BID #60 tablet 04/05/17 [Rx] fentaNYL [Duragesic] 12 mcg TRDERM Q72H #1 box 04/05/17 [Rx] traMADol [Ultram] 50 mg PO Q4H PRN #30 tablet 04/05/17 [Rx] Patient Handouts: Back Pain, Adult, Sciatica, [id number] Forms: ED Department Discharge Referrals: Elliot Akbar MD [Ordering Only Provider] - 05/05/17 11:00 am (Please follow up with Dr. Akbar on at 1100. This appt. is in [place], please arrive at the hospital 20 minutes early. ) Keely Plata NP [Primary Care Provider] - 04/12/17 10:30 am (Please follow up with Keely Plata on at 1030am. Please check in at 10:15am.) - Patient Data Vitals - Most Recent: Last Vital Signs Temp 36.8 C 04/05/17 12:32 Pulse 63 04/05/17 12:32 Resp 18 04/05/17 12:32 BP 130/62 04/05/17 12:32 Pulse Ox 95 04/05/17 12:32 I&O - Last 24 hours: Intake & Output 04/05/17 04/05/17 04/05/17 06:59 14:59 22:59 Intake Total 500 240 520 Output Total 300 500 Balance 200 240 20 Lab Results - Last 24 hrs: Laboratory Results - last 24 hr 04/05/17 04/05/17 Range/Units 06:20 06:20 WBC 7.12 (3.98-10.04) K/mm3 RBC 3.74 L (3.98-5.22) M/mm3 Hgb 12.5 (11.2-15.7) gm/L Hct 37.6 (34.1-44.9) % MCV 100.5 H (79.4-94.8) fl MCH 33.4 H (25.6-32.2) pg MCHC 33.2 (32.2-35.5) g/dl RDW Std Deviation 46.4 H (36.4-46.3) fL Plt Count 248 (182-369) K/mm3 MPV 9.2 L (9.4-12.3) fl Neut % (Auto) 58.0 (34.0-71.1) % Lymph % (Auto) 25.6 (19.3-51.7) % [place] % (Auto) 12.9 H (4.7-12.5) % Eos % (Auto) 2.9 (0.7-5.8) Baso % (Auto) 0.3 (0.1-1.2) % Neut # (Auto) 4.13 (1.56-6.13) K/mm3 Lymph # (Auto) 1.82 (1.18-3.74) K/mm3 [place] # (Auto) 0.92 H (0.24-0.36) K/mm3 Eos # (Auto) 0.21 (0.04-0.36) K/mm3 Baso # (Auto) 0.02 (0.01-0.08) K/mm3 Sodium 139 (136-145) mEq/L Potassium 3.7 (3.5-5.1) mEq/L Chloride 105 (98-107) mEq/L Carbon Dioxide 26 (21-32) mEq/L Anion Gap 11.7 (5-15) BUN 14 (7-18) mg/dL Creatinine 0.6 (0.55-1.02) mg/dL Est Cr Clr Drug Dosing 47.45 mL/min Estimated GFR (MDRD) > 60 (>60) mL/min BUN/Creatinine Ratio 23.3 H (14-18) Glucose 100 (83-115) mg/dL Calcium 8.1 L (8.5-10.1) mg/dL Magnesium 2.0 (1.8-2.4) mg/dl C-Reactive Protein < 0.2 (<1.0) mg/dL Med Orders - Current: Current Medications Amlodipine Besylate (Norvasc) 2.5 mg PO DAILY [facility] Last Admin: 04/05/17 08:41 Dose: 2.5 mg Aspirin (Aspirin) 81 mg PO DAILY [facility] Last Admin: 04/05/17 08:41 Dose: 81 mg Calcium Carbonate (Calcium Carbonate/Vitamin D 1500 Mg-200 Unit) 1 tab PO DAILY [facility] Last Admin: 04/05/17 08:41 Dose: 1 tab Carvedilol (Coreg) 6.25 mg PO BID [facility] Last Admin: 04/05/17 08:42 Dose: 6.25 mg Celecoxib (Celebrex) 100 mg PO BID [facility] Last Admin: 04/05/17 08:41 Dose: 100 mg Diclofenac Sodium (Voltaren 1% Gel) 0 gm TOP ASDIRECTED PRN PRN Reason: Pain Last Admin: 04/05/17 10:48 Dose: 100 gm Enoxaparin Sodium (Lovenox) 40 mg SUBCUT DAILY [facility] Last Admin: 04/05/17 08:42 Dose: 40 mg Famotidine (Pepcid) 20 mg PO BID [facility] Last Admin: 04/05/17 08:41 Dose: 20 mg Fentanyl (Duragesic) 12 mcg TRDERM Q72H [facility] Last Admin: 04/05/17 14:54 Dose: 12 mcg Ferrous Sulfate (Ferrous Sulfate) 325 mg PO DAILY [facility] Last Admin: 04/05/17 08:41 Dose: 325 mg Hydralazine HCl (Apresoline) 20 mg IVPUSH Q8H PRN PRN Reason: Hypertension Last Admin: 04/03/17 23:24 Dose: 20 mg Hydromorphone HCl (Dilaudid) 0.5 mg IVPUSH Q4H PRN PRN Reason: Pain Lidocaine (Lidoderm 5%) 700 mg TOP Q24H [facility] Last Admin: 04/05/17 10:46 Dose: 700 mg Miscellaneous Information (Remove Patch) 1 ea TRDERM Q72H [facility] Last Admin: 04/05/17 14:55 Dose: 1 ea Miscellaneous Information (Remove Patch) 0 ea TRDERM Q24H [facility] Last Admin: 04/04/17 21:02 Dose: 1 ea Multivitamins (Thera) 1 each PO DAILY [facility] Last Admin: 04/05/17 08:41 Dose: 1 each Potassium Chloride (Klor-Con 10) 10 meq PO DAILY [facility] Last Admin: 04/05/17 08:40 Dose: 10 meq Tramadol HCl (Ultram) 50 mg PO Q4H PRN PRN Reason: Pain Last Admin: 04/05/17 15:08 Dose: 50 mg Discontinued Medications Amlodipine Besylate (Norvasc) 5 mg PO ONETIME ONE Stop: 04/02/17 12:41 Last Admin: 04/02/17 13:06 Dose: 5 mg Carvedilol (Coreg) 12.5 mg PO ONETIME ONE Stop: 04/02/17 12:41 Last Admin: 04/02/17 13:04 Dose: 12.5 mg Denosumab (Prolia) 60 mg SUBCUT ASDIRECTED [facility] Diphenhydramine HCl (Benadryl) 25 mg PO QAM [facility] Last Admin: 04/04/17 07:28 Dose: Not Given Non-Formulary Medication (Cranberry [Cranberry]) 400 mg PO DAILY [facility] Non-Formulary Medication (Calcium Carbonate/Vitamin D3 [Calcium Carb 500 Mg]) 1 tab CHEW ASDIRECTED [facility] Potassium Chloride (Potassium Chloride Solution) 40 meq PO ONETIME ONE Stop: 04/02/17 19:01 Last Admin: 04/02/17 18:32 Dose: 40 meq Potassium Chloride (Klor-Con M20) 20 meq PO ONETIME ONE Stop: 04/04/17 10:31 Last Admin: 04/04/17 10:31 Dose: 20 meq Tramadol HCl (Ultram) 50 mg PO ONETIME ONE Stop: 04/02/17 12:09 Last Admin: 04/02/17 12:13 Dose: 50 mg Tramadol HCl (Ultram) 50 mg PO Q8H PRN PRN Reason: Pain (moderate 4-6) Last Admin: 04/05/17 03:51 Dose: 50 mg *Q Meaningful Use (DIS) - VTE *Q VTE Criteria *Q: - Stroke *Q Stroke Criteria *Q: - AMI *Q AMI Criteria *Q: <Ana Parsons - Last Filed: 04/06/17 13:02> Discharge Summary - Hospital Course Free Text/Narrative:: The patient is an 86-year-old female brought in by EMS for severe right back and hip pain. She states she had a fall about 6 weeks ago. After that time, though she was not injured and didn't seek medical attention. About 3 weeks after the fall she started to get severe pain in the right low back and hip area while she was at work. Pain is located in the right posterior hip and low back area and sometimes radiates down her right foot. No numbness, paresthesia, or weakness in the feet. No urinary symptoms. She saw a clinic provider who did some sort of x-rays and diagnosed her with sciatica she was prescribed diclofenac tablets and topical diclofenac gel. However she's had no improvement with these medications. In fact today her pain was so bad that she was not able to get out of bed. Her daughter has been trying to help her out at home but even with her daughter's assistance she was not able to get up due to the severity of her pain. She is normally very active and healthy and previously walk without assistance. She has been trying to use a walker however she is feeling too much pain to use and use her walker today. No new falls or trauma. No fever or recent illness. No prior history of back or hip pain. Xray of the right hip/pelvis was obtained in the ED and is unremarkable for acute findings. Hospitalist service was consulted for admission for intractable LBP. Patient was medicated with fentanyl patch and tramadol with minimal relief. Celebrex, muscle relaxant and lidoderm patch were added. Ice did help. She worked with therapies on mobility with some improvements. CT scan of lumbar spine was obtained, without fractures/compression fractures but with degenerative changes and mild spinal stenosis noted at L3-4 and L4-5. Labs remained stable and unremarkable. VSS. Pain slowly improved. She will be discharged on above noted regimen. Consult has been set up with Dr. Akbar, Utilization Specialist in [place]. She is to follow up with her PCP within one week of discharge and will cont with PT. - Discharge Data Discharge Date: 04/05/17 (admit date 04/02/17) - Discharge Diagnosis/Problem(s) (1) Back pain SNOMED Code(s): 918788226 ICD Code: M54.9 - DORSALGIA, UNSPECIFIED Status: Acute Priority: High Qualifiers: Back pain location: low back pain Chronicity: acute Back pain laterality : right Sciatica presence: with sciatica Sciatica laterality: sciatica of right side Qualified Code(s): M54.41 - Lumbago with sciatica, right side (2) Sciatica SNOMED Code(s): 66044129 ICD Code: M54.30 - SCIATICA, UNSPECIFIED SIDE Status: Acute Priority: High Qualifiers: Laterality: right Qualified Code(s): M54.31 - Sciatica, right side (3) Hypokalemia SNOMED Code(s): 64391895 ICD Code: E87.6 - HYPOKALEMIA Status: Acute Priority: High - Patient Summary/Data Operative Procedure(s) Performed: None Complications: None Consults: Consultations 04/04/17 09:00 Consult to Physical Therapy [PT Evaluation and Treatment] [CONS] Routine 04/04/17 10:00 Consult to Occupational Therapy [OT Evaluation and Treatment] [CONS] Routine Labs Pending at D/C: None Recommended Follow-up Testing/Procedures: Patient DC instructions: Follow up with PCP, MIRYAM Donaldson within one week of discharge. Consult with Dr. Akbar, Back specialist, for back pain, degenerative changes and mild spinal stenosis. Continue with outpatient PT for back pain/balance. Planned Operative Procedure(s) after DC: None Hospital Course: As above - Patient Instructions Diet: Usual Diet as Tolerated Activity: As Tolerated (No lifting, pushing, pulling, carrying >15 lbs at this time. ) Showering/Bathing: May Shower Notify Provider of: Fever, Increased Pain, Nausea and/or Vomiting - Discharge Summary/Plan Comment DC Time >30 min.: Yes (45 min) - General Info Date of Service: 04/05/17 Admission Dx/Problem (Free Text: Admission Diagnosis/Problem Admission Diagnosis/Problem Back pain Karen is a pleasant 86yo female here with acute on chronic back pain. She is sitting up in chair this morning with "no pain right now". Was up and walking well with PT this morning with reports of being "impulsive with movements"- same reported by nursing. Denies pain down her right leg today but states "hip is hurting today". No numbness/tingling Slept well. Appetite is good. No bowel/bladder dysfunction. Functional Status: Reports: Pain Controlled, Tolerating Diet, Ambulating, Urinating, Incentive Spirometry. Denies: New Symptoms - Review of Systems General: Denies: Fever HEENT: Reports: No Symptoms Pulmonary: Reports: No Symptoms Cardiovascular: Reports: No Symptoms Gastrointestinal: Reports: No Symptoms Genitourinary: Reports: No Symptoms Musculoskeletal: Reports: Back Pain Skin: Reports: No Symptoms Neurological: Reports: No Symptoms Psychiatric: Reports: No Symptoms - Patient Data Vitals - Most Recent: Last Vital Signs Temp 97.5 F 04/05/17 08:24 Pulse 69 04/05/17 08:42 Resp 16 04/05/17 08:24 BP 170/92 H 04/05/17 08:42 Pulse Ox 95 04/05/17 08:24 Weight - Most Recent: 102 lb 1.6 oz I&O - Last 24 hours: Intake & Output 04/04/17 04/05/17 04/05/17 22:59 06:59 14:59 Intake Total 670 500 Output Total 600 300 Balance 70 200 Lab Results - Last 24 hrs: Laboratory Results - last 24 hr 04/05/17 04/05/17 Range/Units 06:20 06:20 WBC 7.12 (3.98-10.04) K/mm3 RBC 3.74 L (3.98-5.22) M/mm3 Hgb 12.5 (11.2-15.7) gm/L Hct 37.6 (34.1-44.9) % MCV 100.5 H (79.4-94.8) fl MCH 33.4 H (25.6-32.2) pg MCHC 33.2 (32.2-35.5) g/dl RDW Std Deviation 46.4 H (36.4-46.3) fL Plt Count 248 (182-369) K/mm3 MPV 9.2 L (9.4-12.3) fl Neut % (Auto) 58.0 (34.0-71.1) % Lymph % (Auto) 25.6 (19.3-51.7) % [place] % (Auto) 12.9 H (4.7-12.5) % Eos % (Auto) 2.9 (0.7-5.8) Baso % (Auto) 0.3 (0.1-1.2) % Neut # (Auto) 4.13 (1.56-6.13) K/mm3 Lymph # (Auto) 1.82 (1.18-3.74) K/mm3 [place] # (Auto) 0.92 H (0.24-0.36) K/mm3 Eos # (Auto) 0.21 (0.04-0.36) K/mm3 Baso # (Auto) 0.02 (0.01-0.08) K/mm3 Sodium 139 (136-145) mEq/L Potassium 3.7 (3.5-5.1) mEq/L Chloride 105 (98-107) mEq/L Carbon Dioxide 26 (21-32) mEq/L Anion Gap 11.7 (5-15) BUN 14 (7-18) mg/dL Creatinine 0.6 (0.55-1.02) mg/dL Est Cr Clr Drug Dosing 47.45 mL/min Estimated GFR (MDRD) > 60 (>60) mL/min BUN/Creatinine Ratio 23.3 H (14-18) Glucose 100 (83-115) mg/dL Calcium 8.1 L (8.5-10.1) mg/dL Magnesium 2.0 (1.8-2.4) mg/dl C-Reactive Protein < 0.2 (<1.0) mg/dL Med Orders - Current: Current Medications Amlodipine Besylate (Norvasc) 2.5 mg PO DAILY [facility] Last Admin: 04/05/17 08:41 Dose: 2.5 mg Aspirin (Aspirin) 81 mg PO DAILY [facility] Last Admin: 04/05/17 08:41 Dose: 81 mg Calcium Carbonate (Calcium Carbonate/Vitamin D 1500 Mg-200 Unit) 1 tab PO DAILY [facility] Last Admin: 04/05/17 08:41 Dose: 1 tab Carvedilol (Coreg) 6.25 mg PO BID [facility] Last Admin: 04/05/17 08:42 Dose: 6.25 mg Celecoxib (Celebrex) 100 mg PO BID [facility] Last Admin: 04/05/17 08:41 Dose: 100 mg Diclofenac Sodium (Voltaren 1% Gel) 0 gm TOP ASDIRECTED PRN PRN Reason: Pain Enoxaparin Sodium (Lovenox) 40 mg SUBCUT DAILY [facility] Last Admin: 04/05/17 08:42 Dose: 40 mg Famotidine (Pepcid) 20 mg PO BID [facility] Last Admin: 04/05/17 08:41 Dose: 20 mg Fentanyl (Duragesic) 12 mcg TRDERM Q72H [facility] Last Admin: 04/02/17 15:44 Dose: 12 mcg Ferrous Sulfate (Ferrous Sulfate) 325 mg PO DAILY [facility] Last Admin: 04/05/17 08:41 Dose: 325 mg Hydralazine HCl (Apresoline) 20 mg IVPUSH Q8H PRN PRN Reason: Hypertension Last Admin: 04/03/17 23:24 Dose: 20 mg Hydromorphone HCl (Dilaudid) 0.5 mg IVPUSH Q4H PRN PRN Reason: Pain Lidocaine (Lidoderm 5%) 700 mg TOP Q24H [facility] Last Admin: 04/04/17 10:31 Dose: 700 mg Miscellaneous Information (Remove Patch) 1 ea TRDERM Q72H [facility] Miscellaneous Information (Remove Patch) 0 ea TRDERM Q24H [facility] Last Admin: 04/04/17 21:02 Dose: 1 ea Multivitamins (Thera) 1 each PO DAILY [facility] Last Admin: 04/05/17 08:41 Dose: 1 each Potassium Chloride (Klor-Con 10) 10 meq PO DAILY [facility] Last Admin: 04/05/17 08:40 Dose: 10 meq Tramadol HCl (Ultram) 50 mg PO Q4H PRN PRN Reason: Pain Discontinued Medications Amlodipine Besylate (Norvasc) 5 mg PO ONETIME ONE Stop: 04/02/17 12:41 Last Admin: 04/02/17 13:06 Dose: 5 mg Carvedilol (Coreg) 12.5 mg PO ONETIME ONE Stop: 04/02/17 12:41 Last Admin: 04/02/17 13:04 Dose: 12.5 mg Denosumab (Prolia) 60 mg SUBCUT ASDIRECTED [facility] Diphenhydramine HCl (Benadryl) 25 mg PO QAM [facility] Last Admin: 04/04/17 07:28 Dose: Not Given Non-Formulary Medication (Cranberry [Cranberry]) 400 mg PO DAILY [facility] Non-Formulary Medication (Calcium Carbonate/Vitamin D3 [Calcium Carb 500 Mg]) 1 tab CHEW ASDIRECTED [facility] Potassium Chloride (Potassium Chloride Solution) 40 meq PO ONETIME ONE Stop: 04/02/17 19:01 Last Admin: 04/02/17 18:32 Dose: 40 meq Potassium Chloride (Klor-Con M20) 20 meq PO ONETIME ONE Stop: 04/04/17 10:31 Last Admin: 04/04/17 10:31 Dose: 20 meq Tramadol HCl (Ultram) 50 mg PO ONETIME ONE Stop: 04/02/17 12:09 Last Admin: 04/02/17 12:13 Dose: 50 mg Tramadol HCl (Ultram) 50 mg PO Q8H PRN PRN Reason: Pain (moderate 4-6) Last Admin: 04/05/17 03:51 Dose: 50 mg - Exam Quality Assessment: Reports: DVT Prophylaxis General: Reports: Alert, Oriented, Cooperative, No Acute Distress HEENT: Reports: Pupils Equal, EOMI, Mucous Membr. Moist/[place] Neck: Reports: Supple Lungs: Reports: Clear to Auscultation, Normal Respiratory Effort Cardiovascular: Reports: Regular Rate, Regular Rhythm GI/Abdominal Exam: Normal Bowel Sounds, Soft, Non-Tender (Female) Exam: Deferred Rectal (Female) Exam: Deferred Back Exam: Reports: Paraspinal Tenderness Extremities: No Pedal Edema, Normal Capillary Refill Skin: Reports: Warm, Dry, Intact Neurological: Reports: No New Focal Deficit, Strength Equal Bilateral Psy/Mental Status: Reports: Alert, Normal Affect *Q Meaningful Use (DIS) - VTE *Q VTE Criteria *Q: - Stroke *Q Stroke Criteria *Q: - AMI *Q AMI Criteria *Q:
[2017-04-05] MEDS: Lidocaine 5% 700 MG Patch TOP SCH (10:46)
[2017-04-05 13:52] VITALS: BP 130/62
[2017-04-05] MEDS: fentaNYL 12 MCG/HR Transdermal Patch TRDERM SCH (14:54)
== END 2017-04-05 17:25 | disposition home or self-care (01) | DRG 552 ==
LOC: JD.ED 11:24 → JD.MS 13:23 → UNDOADMIN 13:23 → JD.MS 14:40
PROVIDERS: ADMIT Internal Medicine; ATTEND Internal Medicine
DX: M54.41 Lumbago with sciatica, right side (principal); E87.6 Hypokalemia; I10 Essential (primary) hypertension; H26.9 Unspecified cataract; Z66 Do not resuscitate
CPT/HCPCS: 73502; 99285; A9270 ×3; 36415; 72131; 72131-26; 80048; 80053; 80061; 83735; 85025; 85652; 86140; 87804; 97110-GO; 97110-GP; 97116-GP; 97162-GP; 97166-GO; 97530-GO; 99283; J0360; J1650

== ENCOUNTER 2017-05-15 11:17 | Emergency (ER) | payer MEDICARE, OTHER ==
[2017-05-15 11:36] VITALS: BP 124/103
[2017-05-15] MEDS ORDERED: Sodium Chloride 0.9% 10 ML Syringe FLUSH PRN (12:02)
[2017-05-15] MEDS ORDERED: Sodium Chloride 0.9% 500 ML IV ONE (12:06)
[2017-05-15] MEDS ORDERED: Sodium Chloride 0.9% 250 ML IV ONE (12:08)
--- NOTE | 2017-05-15 12:45 | EDM.PDOC ---
ED HPI GENERAL MEDICAL PROBLEM - General Chief Complaint: Gastrointestinal Problem Stated Complaint: VOMITING AND WEAK Time Seen by Provider: 05/15/17 12:00 Source of Information: Reports: Patient History Limitations: Reports: No Limitations - History of Present Illness INITIAL COMMENTS - FREE TEXT/NARRATIVE: 86 year old female presents with her daughter for evaluation treatment of vomiting and weakness. Reportedly the patient had one episode of vomiting on Tuesday and one episode of vomiting today. She does feel nauseous. She is also appreciated some pain in her lower abdomen, decreased appetite and bloating. She does have dizziness and lightheadedness but states this is chronic has not appreciated any change. No fevers, chills, cough or syncope. She had one episode of diarrhea earlier today. No blood in her stool. Patient did not get a flu shot this year. - Related Data Allergies Allergy/AdvReac Type Severity Reaction Status Date / Time eggs Allergy Cannot Uncoded 04/02/17 11:27 Remember Home Meds: Home Meds Carvedilol [Coreg] 6.25 mg PO BID #60 tablet 08/22/15 [Rx] Aspirin 81 mg PO DAILY 04/02/17 [History] Calcium Carbonate/Vitamin D3 [Calcium 500-Vit D3 200 Tablet] 1 tab PO DAILY [History] Cranberry 400 mg PO DAILY 04/02/17 [History] Denosumab [Prolia] 60 mg SUBCUT ASDIRECTED 04/02/17 [History] Ferrous Sulfate 325 mg PO DAILY 04/02/17 [History] Garlic 400 mg PO DAILY 04/02/17 [History] Gluc 2KCl/Chondr/Princess Hy/Hy Ac [Glucosamine & Chondroitin Cap] 1 cap PO DAILY [History] Multivitamin with Minerals [Multivitamins with Minerals] 1 tab PO DAILY [History] Potassium Chloride 10 meq PO DAILY 04/02/17 [History] Vit A/C/E AC/Znox/Cupric Oxide [Eye Vitamin-Minerals Tablet] 1 tab PO DAILY [History] amLODIPine [Norvasc] 2.5 mg PO DAILY 04/02/17 [History] diphenhydrAMINE [Benadryl] 25 mg PO QAM PRN 04/02/17 [History] Celecoxib [CeleBREX] 100 mg PO BID #60 cap 04/05/17 [Rx] Diclofenac Sodium [Voltaren 1% Gel] 1 applic TOP ASDIRECTED PRN 04/05/17 [ History] Famotidine [Pepcid] 20 mg PO BID #60 tablet 04/05/17 [Rx] fentaNYL [Duragesic] 12 mcg TRDERM Q72H #1 box 04/05/17 [Rx] traMADol [Ultram] 50 mg PO Q4H PRN #30 tablet 04/05/17 [Rx] Past Medical History HEENT History: Reports: Cataract Cardiovascular History: Reports: Hypertension Gastrointestinal History: Reports: Chronic Constipation, Chronic Diarrhea 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 Denies: Fever, Chills Respiratory: Denies: Cough GI/Abdominal: Reports: Abdominal Pain (lower abdomen), Diarrhea (had one episode this morning), Vomiting Neurological: Reports: Dizziness (chronic, no change). Denies: Syncope ED EXAM, GI/ABD - Physical Exam Exam: See Below Exam Limited By: No Limitations General Appearance: Alert, WD/WN, No Apparent Distress Ears: Normal External Exam Nose: Normal Inspection Throat/Mouth: Normal Inspection, Normal Lips, Normal Voice, No Airway Compromise Neck: Normal Inspection Respiratory/Chest: No Respiratory Distress, Lungs Clear, Normal Breath Sounds Cardiovascular: Normal Peripheral Pulses, Regular Rate, Rhythm, No Murmur GI/Abdominal Exam: Tender (lower abdomen, greatest in the left lower quadrant), Other (hyperactive bowel sounds) Neurological: Alert, Oriented, Normal Cognition Psychiatric: Normal Affect, Normal Mood Skin Exam: Warm, Dry, Normal Color EKG INTERPRETATION EKG Date: 05/15/17 Time: 12:15 Rhythm: NSR Rate (Beats/Min): 90 [place]: Normal P-Wave: Present QRS: Normal ST-T: Normal QT: Normal EKG Interpretation Comments: NSR at 990 bpm. Decreased voltage in limb leads. Otherwise normal ECG. Reviewed by myself and Dr. Krishnamurthy. Course - Vital Signs Last Recorded V/S: Last Vital Signs Temp 36.8 C 05/15/17 11:25 Pulse 100 05/15/17 11:25 Resp 21 H 05/15/17 11:25 BP 124/103 H 05/15/17 11:25 Pulse Ox 96 05/15/17 11:25 Orthostatic Blood Pressure [ 126/77 Standing] Orthostatic Blood Pressure [ 104/92 Sitting] Orthostatic Blood Pressure [ 147/72 Supine] - Orders/Labs/Meds Orders: Active Orders 24 hr Category Date Time Status Cardiac Monitoring [RC] . DIRECTED Care 05/15/17 12:02 Active EKG Documentation Completion [RC] ASDIRECTED Care 05/15/17 12:04 Active Orthostatic Vital Signs [RC] ASDIRECTED Care 05/15/17 12:08 Active Peripheral IV Care [RC] . DIRECTED Care 05/15/17 12:04 Active Abdomen Pelvis w Cont [CT] Stat Exams 05/15/17 13:41 Taken CULTURE URINE [RM] Stat Lab 05/15/17 12:40 Received Sodium Chloride 0.9% [Saline Flush] Med 05/15/17 12:02 Active 10 ml FLUSH ASDIRECTED PRN Peripheral IV Insertion Adult [OM.PC] Routine Oth 05/15/17 12:02 Ordered EKG 12 Lead [EK] Stat Ther 05/15/17 12:02 Ordered Medication Orders Sodium Chloride (Saline Flush) 10 ml FLUSH ASDIRECTED PRN PRN Reason: Keep Vein Open Last Admin: 05/15/17 12:19 Dose: 10 ml Labs: Laboratory Tests 05/15/17 05/15/17 05/15/17 Range/Units 12:24 12:24 12:24 WBC 12.65 H (3.98-10.04) K/mm3 RBC 3.88 L (3.98-5.22) M/mm3 Hgb 12.5 (11.2-15.7) gm/L Hct 38.5 (34.1-44.9) % MCV 99.2 H (79.4-94.8) fl MCH 32.2 (25.6-32.2) pg MCHC 32.5 (32.2-35.5) g/dl RDW Std Deviation 50.2 H (36.4-46.3) fL Plt Count 286 (182-369) K/mm3 MPV 9.2 L (9.4-12.3) fl Neutrophils % (Manual) 54 (40-60) % Band Neutrophils % 33 H (0-10) % Lymphocytes % (Manual) 7 L (20-40) % Monocytes % (Manual) 5 (2-10) % Eosinophils % (Manual) 1 (0.7-5.8) % Basophils % (Manual) 0 L (0.1-1.2) Differential Comment See note Toxic Granulation 1+ slight Platelet Estimate Adequate RBC Morph Comment Normal Sodium 138 (136-145) mEq/L Potassium 4.2 (3.5-5.1) mEq/L Chloride 103 (98-107) mEq/L Carbon Dioxide 28 (21-32) mEq/L Anion Gap 11.2 (5-15) BUN 29 H (7-18) mg/dL Creatinine 1.1 H (0.55-1.02) mg/dL Est Cr Clr Drug Dosing 24.51 mL/min Estimated GFR (MDRD) 47 (>60) mL/min BUN/Creatinine Ratio 26.4 H (14-18) Glucose 143 H (83-115) mg/dL Calcium 9.0 (8.5-10.1) mg/dL Magnesium 2.1 (1.8-2.4) mg/dl Total Bilirubin 1.0 (0.2-1.0) mg/dL AST 22 (15-37) U/L ALT 29 (14-59) U/L Alkaline Phosphatase 93 (46-116) U/L CK-MB (CK-2) 0.6 (0-3.6) ng/ml Troponin I < 0.017 (0.00-0.056) ng/mL C-Reactive Protein 33.3 H* (<1.0) mg/dL NT-Pro-B Natriuret Pep 2294 H (0-450) pg/mL Total Protein 6.5 (6.4-8.2) g/dl Albumin 2.4 L (3.4-5.0) g/dl Globulin 4.1 gm/dL Albumin/Globulin Ratio 0.6 L (1-2) Lipase 65 L (73-393) U/L Urine Color (Yellow) Urine Appearance (Clear) Urine pH (5.0-8.0) Ur Specific [place] (1.005-1.030) Urine Protein (Negative) Urine Glucose (UA) (Negative) Urine Ketones (Negative) Urine Occult Blood (Negative) Urine Nitrite (Negative) Urine Bilirubin (Negative) Urine Urobilinogen (0.2-1.0) Ur Leukocyte Esterase (Negative) Urine RBC (0-5) /hpf Urine WBC (0-5) /hpf Ur Epithelial Cells (0-5) /hpf Urine Bacteria (FEW) /hpf Urine Mucus (FEW) /hpf 05/15/17 Range/Units 12:40 WBC (3.98-10.04) K/mm3 RBC (3.98-5.22) M/mm3 Hgb (11.2-15.7) gm/L Hct (34.1-44.9) % MCV (79.4-94.8) fl MCH (25.6-32.2) pg MCHC (32.2-35.5) g/dl RDW Std Deviation (36.4-46.3) fL Plt Count (182-369) K/mm3 MPV (9.4-12.3) fl Neutrophils % (Manual) (40-60) % Band Neutrophils % (0-10) % Lymphocytes % (Manual) (20-40) % Monocytes % (Manual) (2-10) % Eosinophils % (Manual) (0.7-5.8) % Basophils % (Manual) (0.1-1.2) Differential Comment Toxic Granulation Platelet Estimate RBC Morph Comment Sodium (136-145) mEq/L Potassium (3.5-5.1) mEq/L Chloride (98-107) mEq/L Carbon Dioxide (21-32) mEq/L Anion Gap (5-15) BUN (7-18) mg/dL Creatinine (0.55-1.02) mg/dL Est Cr Clr Drug Dosing mL/min Estimated GFR (MDRD) (>60) mL/min BUN/Creatinine Ratio (14-18) Glucose (83-115) mg/dL Calcium (8.5-10.1) mg/dL Magnesium (1.8-2.4) mg/dl Total Bilirubin (0.2-1.0) mg/dL AST (15-37) U/L ALT (14-59) U/L Alkaline Phosphatase (46-116) U/L CK-MB (CK-2) (0-3.6) ng/ml Troponin I (0.00-0.056) ng/mL C-Reactive Protein (<1.0) mg/dL NT-Pro-B Natriuret Pep (0-450) pg/mL Total Protein (6.4-8.2) g/dl Albumin (3.4-5.0) g/dl Globulin gm/dL Albumin/Globulin Ratio (1-2) Lipase (73-393) U/L Urine Color Yellow (Yellow) Urine Appearance Clear (Clear) Urine pH 7.0 (5.0-8.0) Ur Specific [place] 1.020 (1.005-1.030) Urine Protein 2+ H (Negative) Urine Glucose (UA) Negative (Negative) Urine Ketones 1+ H (Negative) Urine Occult Blood Negative (Negative) Urine Nitrite Negative (Negative) Urine Bilirubin Negative (Negative) Urine Urobilinogen 1.0 (0.2-1.0) Ur Leukocyte Esterase Trace H (Negative) Urine RBC Not seen (0-5) /hpf Urine WBC 0-5 (0-5) /hpf Ur Epithelial Cells 0-5 (0-5) /hpf Urine Bacteria Few (FEW) /hpf Urine Mucus Few (FEW) /hpf Meds: Medications Generic Name Dose Route Start Last Admin Trade Name Freq PRN Reason Stop Dose Admin Sodium Chloride 10 ml 05/15/17 12:02 05/15/17 12:19 Saline Flush FLUSH 10 ml ASDIRECTED PRN Administration Keep Vein Open Discontinued Medications Generic Name Dose Route Start Last Admin Trade Name Freq PRN Reason Stop Dose Admin Diatrizoate Meglum/Diatrizoate Sod 90 ml 05/15/17 14:03 05/15/17 15:24 Gastrografin 37% PO 05/15/17 14:04 90 ml ONETIME ONE Administration Sodium Chloride 500 mls @ 500 mls/hr 05/15/17 12:06 05/15/17 12:20 Normal Saline IV 05/15/17 13:05 Not Given ONETIME ONE Sodium Chloride 250 mls @ 250 mls/hr 05/15/17 12:08 05/15/17 12:19 Normal Saline IV 05/15/17 13:05 250 mls/hr ONETIME ONE Administration Sodium Chloride 1,000 mls @ 100 mls/hr 05/15/17 13:55 05/15/17 15:06 Normal Saline IV 05/15/17 23:54 100 mls/hr ONETIME ONE Administration Cefepime HCl 2 gm/ Premix 50 mls @ 100 mls/hr 05/15/17 14:02 05/15/17 14:22 IV 05/15/17 14:31 100 mls/hr ONETIME ONE Administration Metronidazole 500 mg/ Premix 100 mls @ 100 mls/hr 05/15/17 14:02 05/15/17 15: 04 IV 05/15/17 15:01 100 mls/hr ONETIME ONE Administration Metronidazole Confirm 05/15/17 14:18 05/15/17 15:06 Flagyl 500 Mg In Ns 100 Ml Administered 05/15/17 14:19 Not Given Dose 100 mls @ as directed .ROUTE .STK-MED ONE Iopamidol 100 ml 05/15/17 14:03 05/15/17 15:24 Isovue-300 (61%) IVPUSH 05/15/17 14:04 100 ml ONETIME ONE Administration Ondansetron HCl 4 mg 05/15/17 14:01 05/15/17 14:27 Zofran IVPUSH 05/15/17 14:02 4 mg ONETIME ONE Administration Sodium Chloride 10 ml 05/15/17 14:03 05/15/17 15:24 Saline Flush FLUSH 05/15/17 14:04 10 ml ONETIME ONE Administration - Radiology Interpretation Free Text/Narrative:: Chest: Portable view of the chest was obtained. Comparison: Prior chest CT of 10/02/15 and chest x-ray of 11/13/12. Mild increased density within the right mid lung is seen most likely due to atelectasis. There is mild amount of free air seen beneath both hemidiaphragms. Heart size is normal. Tortuous thoracic aorta is seen. Mild degenerative change is noted within the spine. Impression: 1. Free air beneath both hemidiaphragms. 2. Mild atelectasis within the right mid lung. 3. Other incidental findings. - Re-Assessments/Exams Free Text/Narrative Re-Assessment/Exam: 05/15/17 15:16 Review of the patient's chest x-ray showed free air under the diaphragm. CT of the abdomen and pelvis immediately ordered. Discussed with Dr. Krishnamurthy. Recommended cefepine and flagyl. Discussed with Dr. Pfeiffer, given her comorbid conditions, recommended transfer to [place]. Discussed disposition with the patient and her daughter. She would like to go [facility] in [place]. Will plan to transfer as soon as CT is complete. I called [place] one call, surgeon on-call, Dr. Shukla, currently in the OR. Will call back shortly. 05/15/17 15:47 Patient just returned from CT. Awaiting CT report. Discussed the case with Dr. Shukla, surgery on-call in [place]. Accepts the patient. Plan will be to have her be seen in the ER and she will go to the OR immediately. Departure - Departure Time of Disposition: 15:49 Disposition: DC/Tfer to Acute Hospital 02 Condition: Serious Clinical Impression: Perforated bowel - Discharge Information Referrals: Marshal Meng MD [Primary Care Provider] - Forms: ED Department Discharge Additional Instructions: Patient to go to [facility] through the ER. Dr. Shukla, surgeon supervisor [employer] will then see her and take her to the OR emergently. - My Orders Last 24 Hours: My Active Orders 05/15/17 12:02 Cardiac Monitoring [RC] . DIRECTED Sodium Chloride 0.9% [Saline Flush] 10 ml FLUSH ASDIRECTED PRN Peripheral IV Insertion Adult [OM.PC] Routine EKG 12 Lead [EK] Stat 05/15/17 12:04 EKG Documentation Completion [RC] ASDIRECTED Peripheral IV Care [RC] . DIRECTED 05/15/17 12:08 Orthostatic Vital Signs [RC] ASDIRECTED 05/15/17 12:40 CULTURE URINE [RM] Stat 05/15/17 13:41 Abdomen Pelvis w Cont [CT] Stat - Assessment/Plan Last 24 Hours: My Active Orders 05/15/17 12:02 Cardiac Monitoring [RC] . DIRECTED Sodium Chloride 0.9% [Saline Flush] 10 ml FLUSH ASDIRECTED PRN Peripheral IV Insertion Adult [OM.PC] Routine EKG 12 Lead [EK] Stat 05/15/17 12:04 EKG Documentation Completion [RC] ASDIRECTED Peripheral IV Care [RC] . DIRECTED 05/15/17 12:08 Orthostatic Vital Signs [RC] ASDIRECTED 05/15/17 12:40 CULTURE URINE [RM] Stat 05/15/17 13:41 Abdomen Pelvis w Cont [CT] Stat
--- NOTE | 2017-05-15 13:28 | CR ---
Chest: Portable view of the chest was obtained. Comparison: Prior chest CT of 10/02/15 and chest x-ray of 11/13/12. Mild increased density within the right mid lung is seen most likely due to atelectasis. There is mild amount of free air seen beneath both hemidiaphragms. Heart size is normal. Tortuous thoracic aorta is seen. Mild degenerative change is noted within the spine. Impression: 1. Free air beneath both hemidiaphragms. 2. Mild atelectasis within the right mid lung. 3. Other incidental findings. Diagnostic code #5
[2017-05-15] MEDS ORDERED: Sodium Chloride 0.9% 1,000 ML IV ONE (13:55)
[2017-05-15] MEDS ORDERED: Ondansetron 4 MG/2 ML SDV IVPUSH ONE (14:01)
[2017-05-15] MEDS ORDERED: metroNIDAZOLE/Normal Saline 500 MG in Premix Bag 1 BAG IV ONE (14:02)
[2017-05-15] MEDS ORDERED: Cefepime 2 GM in Premix Bag 1 BAG IV ONE (14:02)
[2017-05-15] MEDS ORDERED: Iopamidol 612 MG/ML 100 ML Bottle IVPUSH ONE (14:03)
[2017-05-15] MEDS ORDERED: Diatrizoate Meglumine/Diatrizoate Sodium 37% 120 ML Bottle PO ONE (14:03)
[2017-05-15] MEDS ORDERED: metroNIDAZOLE/Normal Saline 100 ML ONE (14:18)
[2017-05-15] MEDS: Sodium Chloride 0.9% 10 ML Syringe FLUSH ONE ×2 (14:30→15:24)
--- NOTE | 2017-05-15 16:02 | CT ---
Addendum: In the body of the report it states bilateral femoral hernias are seen which is correct. Both hernias are mentioned on the left side which is incorrect and the larger hernia is on the right side and the smaller hernia is on the left side. Other portions of the dictation is seen. --- Addendum1 above dictated on [05/17/2017 16:16] by [Yaa Hampton, Emiliano Worley] --- --- Addendum1 above signed on [05/17/2017 16:18] by [Yaa Hampton, Emiliano Worley] --- --- Original report below dictated on [05/15/2017 15:58] by [Yaa Hampton, Emiliano Worley] --- --- Original report below signed on [05/15/2017 16:00] by [Yaa Hampton, Emiliano Worley] --- CT abdomen and pelvis Technique: Multiple axial sections were obtained from above the dome of the diaphragm inferiorly through the pubic symphysis. Intravenous and oral contrast was utilized. Delayed images were also obtained of the bladder. Findings: Free air is again identified within the abdomen. Multiple loops of dilated small bowel are seen. Bilateral femoral hernias are seen. These hernias contain loops of bowel. Small bowel is noted within the left hernia which may be causing the dilated small bowel. Left-sided hernia also felt to contain a loop of small bowel. There is bowel wall thickening within distal small bowel. Haziness is noted within the mesentery within the pelvis presumably due to inflammatory change and mesenteric congestion. Mild dependent atelectasis is seen posteriorly within both lung bases. Liver shows no focal abnormality. Gallbladder contains no calcified gallstones. Spleen appears within normal limits. Adrenal glands show some fullness on the left side which is likely incidental. Right adrenal gland is unremarkable. Pancreas is atrophied. Aorta shows diffuse atherosclerotic calcification which continues into the iliac vessels. Gastroesophageal reflux seen into the esophagus. Diverticuli are seen within the sigmoid colon without diverticulitis. No retroperitoneal adenopathy is seen. Large calcification is seen within the right side of the pelvis which is felt compatible with uterine fibroid which appears degenerated and calcified. Bone window settings were reviewed which shows previous fracture within the S2 segment of the sacrum. Scattered degenerative change is seen within the spine. Impression: 1. Free air within the abdomen. 2. Multiple dilated loops of small bowel with bilateral femoral hernias. Both hernias appear to contain small bowel loops. Hernia on the left side may be causing the small bowel obstruction. Bowel wall thickening is seen within distal small bowel. 3. Haziness within the mesentery within the pelvis most likely representing inflammatory change and mesenteric congestion. 4. Free air within the abdomen likely representing a small bowel leak/perforation. 5. Other incidental findings. Diagnostic code #5 --- Addendum1 signed ---
[2017-05-15] MEDS ORDERED: Ondansetron 4 MG/2 ML SDV IVPUSH STA (16:10)
[2017-05-15] MEDS ORDERED: Ondansetron 4 MG/2 ML SDV ONE (16:10)
== END 2017-05-15 16:10 ==
LOC: JD.ED 11:17
DX: K63.1 Perforation of intestine (nontraumatic) (principal); I10 Essential (primary) hypertension; Z79.82 Long term (current) use of aspirin; Z79.899 Other long term (current) drug therapy
CPT/HCPCS: 36415; 71010; 74177; 80053; 81001; 82553; 83690; 83735; 83880; 84484; 85025; 86140; 87086; 87804; 93005; 96361; 96365; 96367; 96375; 96376; 99285; J0692; J2405; J7040; J7050; Q9963; Q9967; 93010

== ENCOUNTER 2019-01-06 12:39 | Emergency (ER) | payer MEDICARE, OTHER ==
[2019-01-06] MEDS ORDERED: Sodium Chloride 0.9% 10 ML Syringe FLUSH PRN (13:23)
[2019-01-06] MEDS ORDERED: Sodium Chloride 0.9% 1,000 ML IV ONE (13:24)
--- NOTE | 2019-01-06 13:30 | EDM.PDOC ---
ED HPI GENERAL MEDICAL PROBLEM - General Chief Complaint: Gastrointestinal Problem Stated Complaint: DIARRHEA X 1 WEEK Time Seen by Provider: 01/06/19 12:58 Source of Information: Reports: Patient, Family (daughter), RN Notes Reviewed History Limitations: Reports: No Limitations - History of Present Illness INITIAL COMMENTS - FREE TEXT/NARRATIVE: Patient is an 88-year-old female who presents to the ED for the evaluation of diarrhea. The patient and daughter note that this has been going on for the last week if not a little bit longer. The patient notes that over the past week every time she eats or drinks something she states that it just goes straight through her. Does not matter what she is eating or drinking she develops diarrhea. The patient states she has developed some mild generalized weakness and dizziness with this, over the past few days and this has worried her. Her primary care provider is Keely Plata. She was not evaluated in clinic for this. The patient did try to take some Pepto for relief of symptoms , she appreciates that she was able to keep 4 ounces of ensure and some soda crackers down this morning. She notes that her stool was a little bit darker today in color, but has not noted any blood. She states that her diarrhea is watery in nature and is not been formed much at all. She had some mild abdominal cramping yesterday, but this has since subsided as well. Patient denies any sort of dysuria, urinary frequency or urgency, fevers or chills, chest pain or shortness of breath, nausea or vomiting with this. She notes that she lives at home but does go to eat at eldercare every Tuesday. She does not remember any sort of questionable foods that she may have been served, nor does she relate any one else has been sick. - Related Data Allergies Allergy/AdvReac Type Severity Reaction Status Date / Time eggs Allergy Cannot Uncoded 04/02/17 11:27 Remember Home Meds: Home Meds Aspirin 81 mg PO DAILY 04/02/17 [History] Calcium Carbonate/Vitamin D3 [Calcium 500-Vit D3 200 Tablet] 1 tab PO DAILY [History] Denosumab [Prolia] 60 mg SUBCUT ASDIRECTED 04/02/17 [History] Garlic 400 mg PO DAILY 04/02/17 [History] Gluc 2KCl/Chondr/Princess Hy/Hy Ac [Glucosamine & Chondroitin Cap] 1 cap PO DAILY [History] Potassium Chloride 10 meq PO DAILY 04/02/17 [History] amLODIPine [Norvasc] 2.5 mg PO DAILY 04/02/17 [History] Calcium Carbonate/Vitamin D3 [Calcium 500 + Vit D Caplet] 1 cap PO DAILY [History] Doxylamine Succinate [Sleep Aid] 25 mg PO DAILY 01/06/19 [History] Lutein/Minerals/Vit A,C & E [Ocuvite] 1 tab PO DAILY 01/06/19 [History] Metoprolol Succinate [Toprol Xl] 50 mg PO BID 01/06/19 [History] Vitamin E 400 unit PO DAILY 01/06/19 [History] Past Medical History HEENT History: Reports: Cataract Cardiovascular History: Reports: Hypertension Gastrointestinal History: Reports: Chronic Constipation, Chronic Diarrhea [employer] History: Reports: Musculoskeletal History: Reports: Back Pain, Chronic - Past Surgical History HEENT Surgical History: Reports: Cataract Surgery, Tonsillectomy, Other (See Below) Social & Family History - Family History Family Medical History: Noncontributory - Tobacco Use Smoking Status *Q: Never Smoker - Caffeine Use Caffeine Use: Reports: Coffee Other Caffeine Use: decaff - Recreational Drug Use Recreational Drug Use: No ED ROS GENERAL - Review of Systems Review Of Systems: See Below Constitutional: Reports: Weakness, Decreased Appetite (normally has no appetite , not increased from normal). Denies: Fever, Chills, Weight Loss HEENT: Reports: No Symptoms Respiratory: Denies: Shortness of Breath Cardiovascular: Denies: Chest Pain Endocrine: Reports: No Symptoms GI/Abdominal: Reports: Diarrhea, Decreased Appetite. Denies: Abdominal Pain, Bloody Stool, Nausea, Vomiting : Denies: Dysuria, Frequency, Urgency Musculoskeletal: Reports: No Symptoms Skin: Reports: No Symptoms Neurological: Reports: No Symptoms Psychiatric: Reports: No Symptoms Hematologic/Lymphatic: Reports: No Symptoms Immunologic: Reports: No Symptoms ED EXAM, GI/ABD - Physical Exam Exam: See Below Exam Limited By: No Limitations General Appearance: Alert, WD/WN, No Apparent Distress Eyes: Bilateral: Normal Appearance, EOMI Head: Atraumatic, Normocephalic Neck: Normal Inspection Respiratory/Chest: No Respiratory Distress, Lungs Clear, Normal Breath Sounds, No Accessory Muscle Use, Chest Non-Tender Cardiovascular: Normal Peripheral Pulses, Regular Rate, Rhythm, No Murmur GI/Abdominal Exam: Normal Bowel Sounds, Soft, Non-Tender, No Distention, No Mass Back Exam: Normal Inspection, Full Range of Motion Extremities: Normal Inspection, Normal Capillary Refill Neurological: Alert, Oriented, Normal Cognition, No Motor/Sensory Deficits Psychiatric: Normal Affect, Normal Mood Skin Exam: Warm, Dry, Intact, Normal Color, No Rash Course - Vital Signs Last Recorded V/S: Last Vital Signs Temp 97.1 F 01/06/19 12:48 Pulse 70 01/06/19 12:48 Resp 20 01/06/19 12:48 BP 164/69 H 01/06/19 12:48 Pulse Ox 97 01/06/19 12:48 - Orders/Labs/Meds Orders: Active Orders 24 hr Category Date Time Status Peripheral IV Care [RC] . DIRECTED Care 01/06/19 13:24 Ordered Abdomen 2V AP Flat Upright [CR] Stat Exams 01/06/19 13:30 Ordered Sodium Chloride 0.9% [Normal Saline] 1,000 ml Med 01/06/19 13:24 Ordered IV ONETIME Sodium Chloride 0.9% [Saline Flush] Med 01/06/19 13:23 Ordered 10 ml FLUSH ASDIRECTED PRN Peripheral IV Insertion Adult [OM.PC] Stat Oth 01/06/19 13:23 Ordered Medication Orders Sodium Chloride (Normal Saline) 1,000 mls @ 500 mls/hr IV ONETIME ONE Stop: 01/06/19 15:23 Last Admin: 01/06/19 13:46 Dose: 500 mls/hr Sodium Chloride (Saline Flush) 10 ml FLUSH ASDIRECTED PRN PRN Reason: Keep Vein Open Last Admin: 01/06/19 13:30 Dose: 10 ml Labs: Laboratory Tests 01/06/19 01/06/19 Range/Units 13:30 13:30 WBC 6.77 (3.98-10.04) K/mm3 RBC 4.65 (3.98-5.22) M/mm3 Hgb 15.1 D (11.2-15.7) gm/L Hct 45.5 H (34.1-44.9) % MCV 97.8 H (79.4-94.8) fl MCH 32.5 H (25.6-32.2) pg MCHC 33.2 (32.2-35.5) g/dl RDW Std Deviation 45.8 (36.4-46.3) fL Plt Count 222 (182-369) K/mm3 MPV 9.5 (9.4-12.3) fl Neutrophils % (Manual) 56 (40-60) % Band Neutrophils % 0 (0-10) % Lymphocytes % (Manual) 34 (20-40) % Atypical Lymphs % 0 % Monocytes % (Manual) 10 (2-10) % Eosinophils % (Manual) 0 L (0.7-5.8) % Basophils % (Manual) 0 L (0.1-1.2) Platelet Estimate Adequate RBC Morph Comment Normal Sodium 143 (136-145) mEq/L Potassium 4.0 (3.5-5.1) mEq/L Chloride 106 (98-107) mEq/L Carbon Dioxide 29 (21-32) mEq/L Anion Gap 12.0 (5-15) BUN 16 (7-18) mg/dL Creatinine 0.9 (0.55-1.02) mg/dL Est Cr Clr Drug Dosing 30.34 mL/min Estimated GFR (MDRD) 59 (>60) mL/min BUN/Creatinine Ratio 17.8 (14-18) Glucose 95 (83-115) mg/dL Calcium 9.1 (8.5-10.1) mg/dL Magnesium 2.2 (1.8-2.4) mg/dl Total Bilirubin 1.3 H (0.2-1.0) mg/dL AST 24 (15-37) U/L ALT 30 (14-59) U/L Alkaline Phosphatase 50 (46-116) U/L Total Protein 7.4 (6.4-8.2) g/dl Albumin 3.8 (3.4-5.0) g/dl Globulin 3.6 gm/dL Albumin/Globulin Ratio 1.1 (1-2) Meds: Medications Generic Name Dose Route Start Last Admin Trade Name Freq PRN Reason Stop Dose Admin Sodium Chloride 1,000 mls @ 500 mls/hr 01/06/19 13:24 01/06/19 13:46 Normal Saline IV 01/06/19 15:23 500 mls/hr ONETIME ONE Administration Sodium Chloride 10 ml 01/06/19 13:23 01/06/19 13:30 Saline Flush FLUSH 10 ml ASDIRECTED PRN Administration Keep Vein Open - Re-Assessments/Exams Free Text/Narrative Re-Assessment/Exam: 01/06/19 13:31 Patient presents to the ED for evaluation of diarrhea 1 week. Did order a CBC , CMP, mag, IV fluids to be started and a flat and upright abdomen x-ray. 01/06/19 15:08 Patient's labs have returned and are within normal limits, the abdomen x-ray is done as well, this does not demonstrate any sort of abnormality, this was reviewed by myself and Dr. Krishnamurthy. Will likely discharge the patient home with general recommendations. Departure - Departure Time of Disposition: 15:13 Disposition: Home, Self-Care 01 Condition: Fair Clinical Impression: Diarrhea Qualifiers: Diarrhea type: unspecified type Qualified Code(s): R19.7 - Diarrhea, unspecified - Discharge Information *PRESCRIPTION DRUG MONITORING PROGRAM REVIEWED*: No *COPY OF PRESCRIPTION DRUG MONITORING REPORT IN PATIENT MITESH: No Instructions: Food Choices to Help Relieve Diarrhea, Adult, Diarrhea, Adult, [id number] Referrals: Keely Plata NP [Primary Care Provider] - Forms: ED Department Discharge Additional Instructions: You have been evaluated in the ED for diarrhea. Your laboratory evaluation was within normal limits, your abdomen x-ray also was within normal limits. It is likely that this is caused from a virus. You have received IV fluid in the ED to help with the dehydration from the diarrhea. Over the next 24-48 hours please try to limit diet to clear liquids and advance as tolerate to a bland diet to alleviate symptoms of nausea/vomiting/diarrhea. Please try to stay away from juice (apple, grape, etc.) as these are high in sugar and worsen diarrhea. Please return to the ED if your symptoms should change or worsen. - My Orders Last 24 Hours: My Active Orders 01/06/19 13:23 Sodium Chloride 0.9% [Saline Flush] 10 ml FLUSH ASDIRECTED PRN Peripheral IV Insertion Adult [OM.PC] Stat 01/06/19 13:24 Peripheral IV Care [RC] . DIRECTED Sodium Chloride 0.9% [Normal Saline] 1,000 ml IV ONETIME 01/06/19 13:30 Abdomen 2V AP Flat Upright [CR] Stat - Assessment/Plan Last 24 Hours: My Active Orders 01/06/19 13:23 Sodium Chloride 0.9% [Saline Flush] 10 ml FLUSH ASDIRECTED PRN Peripheral IV Insertion Adult [OM.PC] Stat 01/06/19 13:24 Peripheral IV Care [RC] . DIRECTED Sodium Chloride 0.9% [Normal Saline] 1,000 ml IV ONETIME 01/06/19 13:30 Abdomen 2V AP Flat Upright [CR] Stat
[2019-01-06 15:49] VITALS: BP 148/82
--- NOTE | 2019-01-08 07:00 | CR ---
Abdomen: Supine and upright views of the abdomen were obtained. Comparison: Previous CT abdomen and pelvis study of 05/15/17. Findings: Slight blunting of the lateral left costophrenic angle is seen most likely due to slight atelectasis. 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 Bony structures are osteopenic. Vascular calcification is noted. Bowel gas pattern is normal. No free air is seen. Surgical clips are seen within the upper pelvis. Impression: 1. Findings believed to be incidental. Nothing acute is seen on two-view abdominal x-ray. Diagnostic code #2
== END 2019-01-06 15:52 | disposition home or self-care (01) ==
LOC: JD.ED 12:39
DX: R19.7 Diarrhea, unspecified (principal); I10 Essential (primary) hypertension; Z91.012 Allergy to eggs; Z79.82 Long term (current) use of aspirin; Z79.899 Other long term (current) drug therapy
CPT/HCPCS: 36415; 74019; 80053; 83735; 85007; 85027; 96360; 96361; 99284; J7040; 99283